=== PATIENT | male | born 1955 | race African-American/Black ===

== ENCOUNTER 2016-09-05 10:21 | Inpatient (IN) | payer OTHER, MEDICARE ==
[~2016-09-05] VITALS: Ht 188 cm; Wt 92.3 kg
[~2016-09-05 10:21] MED LIST: AMLO10TA2 PO; AMLO5TAB4 PO; AMOX875T PO; CODE30TA PO; FLUT16SP NS; IBUP-1007 PO; LOSA1TAB16 PO; LOTRIMIN RIGHT EAR; MULT-252 PO; OMEG10006 PO; OMEG500C3 PO; OMEP40CA5 PO
[2016-09-05 11:33] VITALS: BP 110/74
--- NOTE | 2016-09-05 11:59 | HP ---
ADMIT DATE: 09/05/2016 CHIEF COMPLAINT: Abdominal pain and nausea. HISTORY OF PRESENT ILLNESS: A 61-year-old black male with a history of pancreatitis from alcohol two months ago and history of hypertension who came in with one week of weakness, cough, nausea and poor oral intake. He noticed dark urine on the day prior to admission. There had been no fever, hematemesis, melena, sputum production or other specific complaints. Urinalysis showed a low level of bile in the urine, a moderately high specific gravity, white cells and nitrite and he was admitted for further evaluation. Two months ago, he was in [place] with fairly severe alcoholic pancreatitis. It settled down fairly quickly and he has only been taking lightly since then, but he does admit to drinking some alcohol. MEDICATIONS: Amlodipine and omeprazole were his only meds. ALLERGIES: No allergies are known. 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 FAMILY HISTORY: Unremarkable. REVIEW OF SYSTEMS: Unremarkable. OBJECTIVE: ENT: Sclerae are clear. TMs and pharynx, unremarkable. Mucosa, mildly dry. NECK: Revealed no masses, nodes or JVD. LUNGS: Clear. CARDIOVASCULAR: Regular rate. No irregular beat or murmur or tachycardia. ABDOMEN: Tender in the epigastrium. No guarding, masses or rebound. EXTREMITIES: Good pedal and radial pulses. No joint or skin lesions. ____. GENITOURINARY AND RECTAL: Deferred. ASSESSMENT: Suspect milder flare of pancreatitis, could have a component of alcoholic hepatitis as well. PLAN: Lab work, hydration and supportive care for now. ANIKET RONQUILLO MD DR: KEYUR/christy JOB#: [id number] / [id number]
[2016-09-05] MEDS: IV DEXTROSE 5%-LACT RINGERS 1,000 ML IV SCH (12:18)
[2016-09-05 12:43] LABS: BASO % 0 % (0-3); EOS % 2 % (0-3); HEMOGLOBIN 12.8 g/dL (13.0-17.5); LYMPH # 2.1 x10^3/uL (1.0-4.8); LYMPH % 25 % (24-48); MEAN CORPUSCULAR HEMOGLOBIN 32 pg (25-35); MEAN CORPUSCULAR HGB CONC 33 g/dL (31-37); MEAN CORPUSCULAR VOLUME 96 fL (79-100); MONO % 5 % (0-9); NEUT % 68 % (31-73); PLATELET COUNT 109 x10^3/uL (140-400); RED BLOOD COUNT 4.06 x10^6/uL (4.30-5.70); RED CELL DISTRIBUTION WIDTH 13.4 % (11.5-14.5); WHITE BLOOD COUNT 8.3 x10^3/uL (4.0-11.0)
[2016-09-05 12:48] LABS: ALBUMIN 2.8 g/dL (3.4-5.0); ALBUMIN/GLOBULIN RATIO 0.7 (1.0-1.7); CALCIUM 8.5 mg/dL (8.5-10.1); CREATININE 1.1 mg/dL (0.7-1.3); GFR 82.9; POTASSIUM 4.2 mmol/L (3.5-5.1); TOTAL BILIRUBIN 5.7 mg/dL (0.2-1.0); TOTAL PROTEIN 6.8 g/dL (6.4-8.2)
[2016-09-05 13:42] LABS: BILIRUBIN,URINE LARGE (NEG); GLUCOSE,URINE NEGATIVE (NEG); NITRITE,URINE POSITIVE (NEG); PH,URINE 5.5; PROTEIN,URINE NEGATIVE (NEG-TRACE)
[2016-09-05] MEDS: LORAZEPAM 1 MG TABLET. PO PRN ×2 (13:56→21:34)
[2016-09-05 14:02] LABS: BACTERIA,URINE 0 /HPF (0-FEW); RBC,URINE 0 /HPF (0-2); SQUAMOUS EPITHELIAL CELL,UR OCC /LPF
[2016-09-05 15:00] VITALS: BP 125/77
[2016-09-05] MEDS: PIPERACILLIN/TAZOBACTAM 3.375 GM in IV NORMAL SALINE 50ML 50 ML IV SCH ×2 (15:12→18:14)
--- NOTE | 2016-09-05 16:39 | RAD ---
Chest, 2 views, 09/05/2016: History: Pancreatitis, acid reflux Comparison is made to a study from 02/28/2015. The heart size and pulmonary vascularity are normal. No pulmonary infiltrates are seen. There is no evidence of pleural fluid. Moderate spurring is present in the spine. A surgical plate and screws is evident in the lower cervical spine. IMPRESSION: No acute cardiopulmonary abnormality is detected.
[2016-09-05 19:00] VITALS: BP 117/71
[2016-09-05] MEDS: PANTOPRAZOLE 40 MG TABLET. PO SCH (21:33)
[2016-09-05 23:00] VITALS: BP 113/74
[2016-09-06] MEDS: PIPERACILLIN/TAZOBACTAM 3.375 GM in IV NORMAL SALINE 50ML 50 ML IV SCH ×5 (01:23→23:25)
[2016-09-06 03:00] VITALS: BP 120/73
[2016-09-06] MEDS: IV DEXTROSE 5%-LACT RINGERS 1,000 ML IV SCH ×4 (03:30→17:33)
[2016-09-06] MEDS: PANTOPRAZOLE 40 MG TABLET. PO SCH (05:42)
[2016-09-06 06:23] LABS: ALBUMIN 2.4 g/dL (3.4-5.0); CALCIUM 8.3 mg/dL (8.5-10.1); DIRECT BILIRUBIN 4.2 mg/dL (0.0-0.2); GFR 92.5; POTASSIUM 4.1 mmol/L (3.5-5.1); TOTAL BILIRUBIN 5.4 mg/dL (0.2-1.0); TOTAL PROTEIN 6.2 g/dL (6.4-8.2)
[2016-09-06 07:00] VITALS: BP 118/72
--- NOTE | 2016-09-06 07:30 | RAD ---
Right upper quadrant abdominal ultrasound, 09/05/2016: History: Right upper quadrant pain The gallbladder is within normal limits in size. There is edematous thickening of the gallbladder hernández. This was not evident on the previous study of 06/22/2016. No gallstones are seen. No bile duct dilatation is evident. The liver demonstrates increased echogenicity in a diffuse pattern most compatible with fatty change. It measures 21.6 cm in craniocaudad extent. The pancreas was obscured by overlying bowel. Limited views of the right kidney show no abnormality. IMPRESSION: 1. Hepatomegaly with diffusely increased hepatic echogenicity compatible with fatty change. 2. Moderate edematous gallbladder wall thickening without evidence of gallstones. This mural thickening can be due to a variety of causes including hepatic disease, renal disease, hypoproteinemia or cholecystitis.
--- NOTE | 2016-09-06 08:25 | PDOC ---
Provider Note Provider Note pain less, no new sxs- low grade temp, vss- tb/db 5.8/4, sono shows no cd obstruct/stones but abn GB- will get ct, cont zosyn, consult gi/gs , may need ercp if bili persists ANIKET RONQUILLO MD Sep 06, 2016 08:25
[2016-09-06] MEDS ORDERED: NON FORMULARY ITEM (Omeprazole 1 CAP) PO SCH (09:00)
[2016-09-06] MEDS ORDERED: AMLODIPINE BESYLATE 10 MG TABLET PO SCH (09:00)
[2016-09-06] MEDS ORDERED: IOHEXOL 240 MG/ML 50ML VIAL. PO ONE (09:45)
[2016-09-06] MEDS ORDERED: IOHEXOL 300 MG/ML 75 ML VIAL IV ONE (09:45)
[2016-09-06] MEDS ORDERED: CONTRAST GIVEN MC PRN (09:45)
--- NOTE | 2016-09-06 09:54 | PDOC2 ---
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 He estimates a 28 pound weight loss since pancreatitis in 06/2016. Labs significant for bili 5.7 (now 5.4), AST 330 (now 241), ALT 163 (now 135), Alk Phos 591 (now 528). Lipase is WNL. No h/o elevated LFTs. Abd US showed hepatomegaly c/w fatty change and moderate gallbladder wall thickening w/o gallstones. GI and surgery consults requested. CT A/P and acute hepatitis panel ordered, along w/ C Dif. Has h/o GERD somewhat improved w/ Rx med (I believe PPI); sometimes he has to "double-up." No previous EGD, recalls colonoscopy w/ 2 polyps ~15 years ago. Is on PPI here and IV atbx. Note Tmax 99.8. PMH: PMH: HTN, GERD, DM FH: Family History: Cancer (father - prostate) Social History: Smoke: <1 pack per day (1 cigar during each [employer] game) ALCOHOL: other (2 beers during each [employer] game) ROS: GEN: +chills/sweats HEENT: Denies blurred vision, sore throat CV: Denies chest pain RESP: Denies shortness of air, cough GI: Per HPI : Denies hematuria, dysuria ENDO: +weight loss NEURO: Denies confusion, dizziness MSK: Denies weakness, joint pain/swelling SKIN: Denies jaundice, pruritus VItals: Vitals: Vital Signs Date Time Temp Pulse Resp B/P Pulse Ox O2 Delivery O2 Flow Rate FiO2 09/06/16 03:00 98.8 92 17 120/73 99 Room Air 98.8 Labs: Labs: Laboratory Tests Test 09/05/16 12:30 09/05/16 13:20 09/06/16 04:15 White Blood Count 8.3x10^3/uL (4.0-11.0) Red Blood Count 4.06x10^6/uL (4.30-5.70) Hemoglobin 12.8g/dL (13.0-17.5) Hematocrit 39.0% (39.0-53.0) Mean Corpuscular Volume 96fL (79-100) Mean Corpuscular Hemoglobin 32pg (25-35) Mean Corpuscular Hemoglobin Concent 33g/dL (31-37) Red Cell Distribution Width 13.4% (11.5-14.5) Platelet Count 109x10^3/uL (140-400) Neutrophils (%) (Auto) 68% (31-73) Lymphocytes (%) (Auto) 25% (24-48) Monocytes (%) (Auto) 5% (0-9) Eosinophils (%) (Auto) 2% (0-3) Basophils (%) (Auto) 0% (0-3) Neutrophils # (Auto) 5.6x10^3uL (1.8-7.7) Lymphocytes # (Auto) 2.1x10^3/uL (1.0-4.8) Monocytes # (Auto) 0.4x10^3/uL (0.0-1.1) Eosinophils # (Auto) 0.1x10^3/uL (0.0-0.7) Basophils # (Auto) 0.0x10^3/uL (0.0-0.2) Sodium Level 123mmol/L (136-145) 136mmol/L (136-145) Potassium Level 4.2mmol/L (3.5-5.1) 4.1mmol/L (3.5-5.1) Chloride Level 88mmol/L (98-107) 101mmol/L (98-107) Carbon Dioxide Level 29mmol/L (21-32) 23mmol/L (21-32) Anion Gap 6 (6-14) 12 (6-14) Blood Urea Nitrogen 9mg/dL (8-26) 6mg/dL (8-26) Creatinine 1.1mg/dL (0.7-1.3) 1.0mg/dL (0.7-1.3) Estimated GFR (Cockcroft-Gault) 82.9 92.5 BUN/Creatinine Ratio 8 (6-20) Glucose Level 165mg/dL (70-99) 197mg/dL (70-99) Calcium Level 8.5mg/dL (8.5-10.1) 8.3mg/dL (8.5-10.1) Total Bilirubin 5.7mg/dL (0.2-1.0) 5.4mg/dL (0.2-1.0) Aspartate Amino Transf (AST/SGOT) 330U/L (15-37) 241U/L (15-37) Alanine Aminotransferase (ALT/SGPT) 163U/L (16-63) 135U/L (16-63) Alkaline Phosphatase 591U/L (46-116) 528U/L (46-116) Total Protein 6.8g/dL (6.4-8.2) 6.2g/dL (6.4-8.2) Albumin 2.8g/dL (3.4-5.0) 2.4g/dL (3.4-5.0) Albumin/Globulin Ratio 0.7 (1.0-1.7) Lipase 370U/L (73-393) Urine Color [place] Urine Clarity Cloudy Urine pH 5.5 Urine Specific [place] 1.015 Urine Protein Negativemg/dL (NEG-TRACE) Urine Glucose (UA) Negativemg/dL (NEG) Urine Ketones (Stick) Tracemg/dL (NEG) Urine Blood Negative (NEG) Urine Nitrite Positive (NEG) Urine Bilirubin Large (NEG) Urine Urobilinogen Dipstick 1.0mg/dL (0.2 mg/dL) Urine Leukocyte Esterase Small (NEG) Urine RBC 0/HPF (0-2) Urine WBC 11-20/HPF (0-4) Urine Squamous Epithelial Cells Occ/LPF Urine Bacteria 0/HPF (0-FEW) Urine Hyaline Casts Moderate/HPF Urine Mucus Slight/LPF Direct Bilirubin 4.2mg/dL (0.0-0.2) Allergies: Coded Allergies: celecoxib (Verified Allergy, Intermediate, RASH, takes Ibuprofen at home, 09/01/14) Medications: Current Medications Medications (Trade) Dose Ordered Sig/Mai Route PRN Reason Start Time Stop Time Status Last Admin Dose Admin Pantoprazole Sodium (Protonix) 40 mg DAILYAC PO 09/05/16 18:00 09/06/16 05:42 Lorazepam 1 mg 1 mg PRN Q4HRS PRN PO ANXIETY / AGITATION 09/05/16 12:00 09/05/16 21:34 Dextrose/Lactated Ringer's 1,000 ml @ 150 mls/hr Q6H40M IV 09/05/16 12:00 09/06/16 03:30 Piperacillin Sod/ Tazobactam Sod/ Sodium Chloride (Zosyn/Iv Sodium Chloride 0.9% 50ml) 50 ml @ 100 mls/hr Q6HRS IV 09/05/16 14:30 09/06/16 05:42 Imaging: Imaging: RUQ US 09/06/16 IMPRESSION: 1. Hepatomegaly with diffusely increased hepatic echogenicity compatible with fatty change. 2. Moderate edematous gallbladder wall thickening without evidence of gallstones. This mural thickening can be due to a variety of causes including hepatic disease, renal disease, hypoproteinemia or cholecystitis. CXR 09/05/16 IMPRESSION: No acute cardiopulmonary abnormality is detected. PE: GEN: NAD, pleasant HEENT: Atraumatic, +sclera icteric LUNGS: CTAB HEART: RRR ABD: NABS, S/ND, epigastric tenderness < RUQ tenderness EXTREMITY: No edema SKIN: No rashes NEURO/PSYCH: A & O 3 A/P: A/P: Jaundice -bili 5.4, AST 241, ALT 135, Alk Phos 528 Upper abd pain, anorexia, vomiting, diarrhea, weight loss, fever -on atbx Abnormal US -hepatomegaly w/ gallbladder wall thickening GERD -not completely controlled w/ PPI, no previous EGD H/o alcoholic pancreatitis -lipase normal this admission CRC screen, h/o colon polyps -reports last colonoscopy ~15 years ago -- Await additional labs and CT. Other per Dr. Bray. NAYE SHELDON Sep 06, 2016 09:54
[2016-09-06 11:00] VITALS: BP 123/65
--- NOTE | 2016-09-06 12:11 | RAD ---
EXAM: CT abdomen with/without contrast. HISTORY: Obstructive jaundice. TECHNIQUE: CT of the abdomen was performed before and after the intravenous administration of 75 mL Omnipaque 300. COMPARISON: 08/11/2014. FINDINGS: Images of the lung bases reveal mild dependent atelectasis or scarring. Bone windows reveal no suspicious lesions. There is severe diffuse hepatic steatosis. The liver is moderately to severely enlarged.] Hepatic lobe, there is ill-defined region of masslike enhancement measuring 4.8 x 3.7 cm. There is relative fatty sparing inferiorly in segment IVb. There is diffuse gallbladder wall thickening without pericholecystic inflammation. There is no clear biliary dilatation. The pancreas is unremarkable. The pancreatic duct is not dilated. There is a duodenal diverticulum along the third/fourth portion, incidental finding. The adrenal glands, spleen and kidneys are unremarkable. A small bowel hernia contains only fat. There is no obstruction. There are diffuse atherosclerotic calcifications. There are no pathologically enlarged lymph nodes. IMPRESSION: 1. Severe diffuse hepatic steatosis and hepatomegaly. 2. There is no ill-defined a 4.8 cm region of hyperenhancement in the right hepatic lobe. This may represent a mass or a focus of fatty sparing. MRI with/without contrast could further characterize if feasible. Otherwise, follow-up is recommended. 3. No biliary dilatation or cause for biliary obstruction is identified. Correlate for primary hepatocellular causes of hyperbilirubinemia. 4. Gallbladder wall thickening likely reflects liver disease rather than acute cholecystitis. Correlate clinically. One or more of the following individualized dose reduction techniques were utilized for this examination: 1. Automated exposure control. 2. Adjustment of the mA and/or kV according to patient size. 3. Use of iterative reconstruction technique.
--- NOTE | 2016-09-06 12:53 | PDOC2 ---
HALLEY SUE JACQUARD CARD LACER 09/06/16 1252: CONSULT Date of Consult Date of Consult DATE: 09/06/16 TIME: 12:45 Reason for Consult Reason for Consult: obstructive jaundice Referring Physician Referring Physician: Dr Abel Identification/Chief Complaint Chief Complaint weakness, abdominal pain Source Source: Chart review, Patient History of Present Illness Reason for Visit: History of alcoholic pancreatitis. Admitted with abdominal pain, weakness, vomiting, and dark urine. Labs demonstrated a normal lipase with elevated LFTS and bilirubin. Currently pain improved and tolerating clear liquids Past Medical History Cardiovascular: HTN GI: GERD Endocrine: Diabetes Past Surgical History Past Surgical History: No pertinent history Family History Family History: Cancer (prostate cancer in father ) Social History <1 pack per day (1 cigar during each [employer] game) ALCOHOL: other (2 beers during each [employer] game) Current Medications Current Medications Current Medications Prochlorperazine Edisylate (Compazine) 5 mg PRN Q6HRS PRN IV NAUSEA/VOMITING; Start 09/05/16 at 12:00 Pantoprazole Sodium (Protonix) 40 mg DAILYAC PO Last administered on 09/06/16 05:42; Start 09/05/16 at 18:00 Lorazepam 1 mg 1 mg PRN Q4HRS PRN PO ANXIETY / AGITATION Last administered on 21:34; Start 09/05/16 at 12:00 Dextrose/Lactated Ringer's 1,000 ml @ 150 mls/hr Q6H40M IV Last administered on 09/06/16 11:00; Start 09/05/16 at 12:00 Piperacillin Sod/ Tazobactam Sod/ Sodium Chloride (Zosyn/Iv Sodium Chloride 0.9 % 50ml) 50 ml @ 100 mls/hr Q6HRS IV Last administered on 09/06/16 11:27; Start 09/05/16 at 14:30 Amlodipine Besylate (Norvasc) 10 mg DAILY PO ; Start 09/06/16 at 09:00; Stop at 09:00; Status DC Non-Formulary Medication 1 cap DAILY PO ; Start 09/06/16 at 09:00; Stop at 09:00; Status DC Iohexol (Omnipaque 240 Mg/ml) 30 ml 1X ONCE PO Last administered on 09/06/16 09:45; Start 09/06/16 at 09:45; Stop 09/06/16 at 09:46; Status DC Iohexol (Omnipaque 300 Mg/ml) 75 ml 1X ONCE IV Last administered on 09/06/16 11:10; Start 09/06/16 at 09:45; Stop 09/06/16 at 09:46; Status DC Info (Do NOT chart on this entry -- for MONITORING) 1 each PRN DAILY PRN MC SEE COMMENTS; Start 09/06/16 at 09:45; Stop 09/08/16 at 09:44 Active Scripts Active Reported Fish Oil ([place]-3 Fatty Acids) 500 Mg Capsule 500 Mg PO DAILY One Daily Venuemob Tablet (Multivits-Minerals/Fa/Lycopene) 1 Each Tablet 1 Each PO DAILY Omeprazole 40 Mg Capsule. 1 Cap PO DAILY Amlodipine Besylate 10 Mg Tablet 10 Mg PO DAILY Allergies Allergies: Coded Allergies: celecoxib (Verified Allergy, Intermediate, RASH, takes Ibuprofen at home, 09/01/14) ROS General: YES: Chills, Fatigue PSYCHOLOGICAL ROS: No: Anxiety, Depression Eyes: No Blurry vision, No Double vision HEENT: No: Heacaches, Sore Throat Hematological and Lymphatic: No: Bleeding Problems, Blood Clots Respiratory: No: Cough, Shortness of breath Cardiovascular: No Chest Pain, No Palpitations Gastrointestinal: Yes Diarrhea, Yes Nausea, Yes Vomiting Genitourinary: No Dysuria, No Hematuria Musculoskeletal: No Joint Pain, No Muscle Pain Neurological: No Impaired Coord/balance, No Numbness/Tingling Skin: No Pruritus, No Rash Physical Exam General: Alert, Oriented X3, Cooperative, No acute distress HEENT: PERRLA, Mucous membr. moist/pink Lungs: Clear to auscultation, Normal air movement Heart: Regular rate, Normal S1, Normal S2, No murmurs Abdomen: Soft, No tenderness Extremities: No clubbing, No cyanosis Skin: No rashes, No breakdown Neuro: Normal speech, Sensation intact Psych/Mental Status: Mental status NL, Mood NL MUSCULOSKELETAL: No deformity, No swelling Vitals VITALS Vital Signs Date Time Temp Pulse Resp B/P Pulse Ox O2 Delivery O2 Flow Rate FiO2 09/06/16 07:00 98.8 85 18 118/72 96 Room Air 98.8 Labs Labs Laboratory Tests Test 09/05/16 12:30 09/05/16 13:20 09/06/16 04:15 White Blood Count 8.3x10^3/uL (4.0-11.0) Red Blood Count 4.06x10^6/uL (4.30-5.70) Hemoglobin 12.8g/dL (13.0-17.5) Hematocrit 39.0% (39.0-53.0) Mean Corpuscular Volume 96fL (79-100) Mean Corpuscular Hemoglobin 32pg (25-35) Mean Corpuscular Hemoglobin Concent 33g/dL (31-37) Red Cell Distribution Width 13.4% (11.5-14.5) Platelet Count 109x10^3/uL (140-400) Neutrophils (%) (Auto) 68% (31-73) Lymphocytes (%) (Auto) 25% (24-48) Monocytes (%) (Auto) 5% (0-9) Eosinophils (%) (Auto) 2% (0-3) Basophils (%) (Auto) 0% (0-3) Neutrophils # (Auto) 5.6x10^3uL (1.8-7.7) Lymphocytes # (Auto) 2.1x10^3/uL (1.0-4.8) Monocytes # (Auto) 0.4x10^3/uL (0.0-1.1) Eosinophils # (Auto) 0.1x10^3/uL (0.0-0.7) Basophils # (Auto) 0.0x10^3/uL (0.0-0.2) Sodium Level 123mmol/L (136-145) 136mmol/L (136-145) Potassium Level 4.2mmol/L (3.5-5.1) 4.1mmol/L (3.5-5.1) Chloride Level 88mmol/L (98-107) 101mmol/L (98-107) Carbon Dioxide Level 29mmol/L (21-32) 23mmol/L (21-32) Anion Gap 6 (6-14) 12 (6-14) Blood Urea Nitrogen 9mg/dL (8-26) 6mg/dL (8-26) Creatinine 1.1mg/dL (0.7-1.3) 1.0mg/dL (0.7-1.3) Estimated GFR (Cockcroft-Gault) 82.9 92.5 BUN/Creatinine Ratio 8 (6-20) Glucose Level 165mg/dL (70-99) 197mg/dL (70-99) Calcium Level 8.5mg/dL (8.5-10.1) 8.3mg/dL (8.5-10.1) Total Bilirubin 5.7mg/dL (0.2-1.0) 5.4mg/dL (0.2-1.0) Aspartate Amino Transf (AST/SGOT) 330U/L (15-37) 241U/L (15-37) Alanine Aminotransferase (ALT/SGPT) 163U/L (16-63) 135U/L (16-63) Alkaline Phosphatase 591U/L (46-116) 528U/L (46-116) Total Protein 6.8g/dL (6.4-8.2) 6.2g/dL (6.4-8.2) Albumin 2.8g/dL (3.4-5.0) 2.4g/dL (3.4-5.0) Albumin/Globulin Ratio 0.7 (1.0-1.7) Lipase 370U/L (73-393) Urine Color [place] Urine Clarity Cloudy Urine pH 5.5 Urine Specific [place] 1.015 Urine Protein Negativemg/dL (NEG-TRACE) Urine Glucose (UA) Negativemg/dL (NEG) Urine Ketones (Stick) Tracemg/dL (NEG) Urine Blood Negative (NEG) Urine Nitrite Positive (NEG) Urine Bilirubin Large (NEG) Urine Urobilinogen Dipstick 1.0mg/dL (0.2 mg/dL) Urine Leukocyte Esterase Small (NEG) Urine RBC 0/HPF (0-2) Urine WBC 11-20/HPF (0-4) Urine Squamous Epithelial Cells Occ/LPF Urine Bacteria 0/HPF (0-FEW) Urine Hyaline Casts Moderate/HPF Urine Mucus Slight/LPF Direct Bilirubin 4.2mg/dL (0.0-0.2) Laboratory Tests Test 09/05/16 13:20 09/06/16 04:15 Urine Color [place] Urine Clarity Cloudy Urine pH 5.5 Urine Specific [place] 1.015 Urine Protein Negativemg/dL (NEG-TRACE) Urine Glucose (UA) Negativemg/dL (NEG) Urine Ketones (Stick) Tracemg/dL (NEG) Urine Blood Negative (NEG) Urine Nitrite Positive (NEG) Urine Bilirubin Large (NEG) Urine Urobilinogen Dipstick 1.0mg/dL (0.2 mg/dL) Urine Leukocyte Esterase Small (NEG) Urine RBC 0/HPF (0-2) Urine WBC 11-20/HPF (0-4) Urine Squamous Epithelial Cells Occ/LPF Urine Bacteria 0/HPF (0-FEW) Urine Hyaline Casts Moderate/HPF Urine Mucus Slight/LPF Sodium Level 136mmol/L (136-145) Potassium Level 4.1mmol/L (3.5-5.1) Chloride Level 101mmol/L (98-107) Carbon Dioxide Level 23mmol/L (21-32) Anion Gap 12 (6-14) Blood Urea Nitrogen 6mg/dL (8-26) Creatinine 1.0mg/dL (0.7-1.3) Estimated GFR (Cockcroft-Gault) 92.5 Glucose Level 197mg/dL (70-99) Calcium Level 8.3mg/dL (8.5-10.1) Total Bilirubin 5.4mg/dL (0.2-1.0) Direct Bilirubin 4.2mg/dL (0.0-0.2) Aspartate Amino Transf (AST/SGOT) 241U/L (15-37) Alanine Aminotransferase (ALT/SGPT) 135U/L (16-63) Alkaline Phosphatase 528U/L (46-116) Total Protein 6.2g/dL (6.4-8.2) Albumin 2.4g/dL (3.4-5.0) Assessment/Plan Assessment/Plan obstructive jaundice alcoholic pancreatitis history CT findings of hepatomegaly, no acute gb findings(likely due to chronic liver disease)--will check PIPIDA to further eval GB ERLIN AGUILERA MD 09/06/16 1308: CONSULT Allergies Allergies: Coded Allergies: celecoxib (Verified Allergy, Intermediate, RASH, takes Ibuprofen at home, 09/01/14) Assessment/Plan Assessment/Plan was by earlier to see patient, but he was on the phone and being taken to CT results of CT reviewed will check PIPIDA will follow with you Thanks for consult HALLEY SUE APRN Sep 06, 2016 12:52 ERLIN AGUILERA MD Sep 06, 2016 13:08
[2016-09-06 15:11] VITALS: BP 125/67
[2016-09-06] MEDS: PROCHLORPERAZINE 10 MG/2 ML VIAL. IV PRN (18:24)
[2016-09-06 19:00] VITALS: BP 137/75
[2016-09-06 23:00] VITALS: BP 151/73
[2016-09-06] MEDS: IBUPROFEN 400 MG TABLET. PO PRN (23:25)
[2016-09-06] MEDS: LORAZEPAM 1 MG TABLET. PO PRN (23:25)
[2016-09-07] MEDS: IV DEXTROSE 5%-LACT RINGERS 1,000 ML IV SCH ×3 (01:13→18:11)
[2016-09-07 03:19] VITALS: BP 123/76
[2016-09-07] MEDS: PIPERACILLIN/TAZOBACTAM 3.375 GM in IV NORMAL SALINE 50ML 50 ML IV SCH ×3 (05:24→18:08)
[2016-09-07 07:50] LABS: ALBUMIN 2.2 g/dL (3.4-5.0); DIRECT BILIRUBIN 4.4 mg/dL (0.0-0.2); TOTAL BILIRUBIN 5.4 mg/dL (0.2-1.0); TOTAL PROTEIN 5.6 g/dL (6.4-8.2)
--- NOTE | 2016-09-07 08:34 | PDOC ---
Provider Note Provider Note T max 102, fair output- still icteric , tender RUQ- tb/db same , rest of TAs better- ct shows large and fatty liver w/ cirrhosis, ? R lobe mass- hida scan pending- LFT in 07/01 were not up, still suspect obstruction now- will check re hep c/ afp also but alcohol most likely culprit ANIKET RONQUILLO MD Sep 07, 2016 08:34
[2016-09-07] MEDS ORDERED: MORPHINE SULFATE 4 MG/ML DISP.SYRIN. IV ONE (09:00)
[2016-09-07] MEDS: PANTOPRAZOLE 40 MG TABLET. PO SCH (10:28)
[2016-09-07 11:00] VITALS: BP 117/68
[2016-09-07 11:10] LABS: BASO # 0.1 x10^3/uL (0.0-0.2); BASO % 1 % (0-3); EOS % 2 % (0-3); HEMATOCRIT 36.8 % (39.0-53.0); HEMOGLOBIN 11.8 g/dL (13.0-17.5); LYMPH % 21 % (24-48); MEAN CORPUSCULAR HEMOGLOBIN 31 pg (25-35); MEAN CORPUSCULAR HGB CONC 32 g/dL (31-37); MEAN CORPUSCULAR VOLUME 98 fL (79-100); MONO % 7 % (0-9); NEUT % 69 % (31-73); PLATELET COUNT 120 x10^3/uL (140-400); RED BLOOD COUNT 3.76 x10^6/uL (4.30-5.70); RED CELL DISTRIBUTION WIDTH 13.5 % (11.5-14.5)
--- NOTE | 2016-09-07 11:17 | RAD ---
EXAM: Nuclear hepatobiliary scan with ejection fraction. HISTORY: Abdominal pain, nausea and vomiting FINDINGS: Serial static images are obtained of the liver and biliary system following IV administration of 5.0 mCi of technetium-99m Choletec. The liver appears enlarged. No focal lesions are seen. There is excretion into the biliary tree and small bowel. The gallbladder did not fill through 60 minutes. 4 mg morphine was administered intravenously at 60 minutes. The gallbladder then filled. IMPRESSION: 1. The gallbladder did not fill through 60 minutes but filled after intravenous morphine administration. No evidence of acute cholecystitis. 2. The liver is enlarged.
[2016-09-07 11:19] LABS: CALCIUM 8.1 mg/dL (8.5-10.1); CREATININE 0.8 mg/dL (0.7-1.3); GFR 119.7; POTASSIUM 3.4 mmol/L (3.5-5.1)
[2016-09-07 11:55] LABS: INR 1.5 (0.8-1.1); PROTHROMBIN TIME PATIENT 17.5 SEC (11.7-14.0)
--- NOTE | 2016-09-07 12:35 | PDOC ---
Subjective: Subjective: Feeling okay, less abd pain. Objective: Objective: Per RN - blood in stool last night and today. Vital Signs: Vital Signs Date Time Temp Pulse Resp B/P Pulse Ox O2 Delivery O2 Flow Rate FiO2 09/07/16 11:00 98.1 64 18 117/68 94 Room Air 98.1 Labs: Laboratory Tests Test 09/07/16 06:55 09/07/16 11:20 White Blood Count 14.0x10^3/uL Red Blood Count 3.76x10^6/uL Hemoglobin 11.8g/dL Hematocrit 36.8% Mean Corpuscular Volume 98fL Mean Corpuscular Hemoglobin 31pg Mean Corpuscular Hemoglobin Concent 32g/dL Red Cell Distribution Width 13.5% Platelet Count 120x10^3/uL Neutrophils (%) (Auto) 69% Lymphocytes (%) (Auto) 21% Monocytes (%) (Auto) 7% Eosinophils (%) (Auto) 2% Basophils (%) (Auto) 1% Neutrophils # (Auto) 9.8x10^3uL Lymphocytes # (Auto) 3.0x10^3/uL Monocytes # (Auto) 1.0x10^3/uL Eosinophils # (Auto) 0.3x10^3/uL Basophils # (Auto) 0.1x10^3/uL Sodium Level 139mmol/L Potassium Level 3.4mmol/L Chloride Level 104mmol/L Carbon Dioxide Level 23mmol/L Anion Gap 12 Blood Urea Nitrogen 4mg/dL Creatinine 0.8mg/dL Estimated GFR (Cockcroft-Gault) 119.7 Glucose Level 130mg/dL Calcium Level 8.1mg/dL Total Bilirubin 5.4mg/dL Direct Bilirubin 4.4mg/dL Aspartate Amino Transf (AST/SGOT) 167U/L Alanine Aminotransferase (ALT/SGPT) 102U/L Alkaline Phosphatase 498U/L Total Protein 5.6g/dL Albumin 2.2g/dL Prothrombin Time 17.5SEC Prothromb Time International Ratio 1.5 Imaging: CT A/P 09/06/16 IMPRESSION: 1. Severe diffuse hepatic steatosis and hepatomegaly. 2. There is no ill-defined a 4.8 cm region of hyperenhancement in the right hepatic lobe. This may represent a mass or a focus of fatty sparing. MRI with/ without contrast could further characterize if feasible. Otherwise, follow-up is recommended. 3. No biliary dilatation or cause for biliary obstruction is identified. Correlate for primary hepatocellular causes of hyperbilirubinemia. 4. Gallbladder wall thickening likely reflects liver disease rather than acute cholecystitis. Correlate clinically. HIDA 09/07/16 IMPRESSION: 1. The gallbladder did not fill through 60 minutes but filled after intravenous morphine administration. No evidence of acute cholecystitis. 2. The liver is enlarged. PE: GEN: NAD LUNGS: clear anteriorly HEART: RRR ABD: epigastric tenderness NEURO/PSYCH: A & O 3 OTHER: note loose brown stool mixed w/ red blood A/P: Elevated LFTs, jaundice, upper abd pain -bili stable 5.4; AST, ALT, Alk Phos slightly lower -US: hepatomegaly w/ gallbladder wall thickening CT: severe diffuse hepatic steatosis and hepatomegaly, 4.8 cm region of hyperenhancement in the right hepatic lobe (mass or a focus of fatty sparing), no biliary dilatation or cause for biliary obstruction is identified, gallbladder wall thickening likely reflects liver disease HIDA: gallbladder did not fill through 60 minutes but filled after intravenous morphine administration, no evidence of acute cholecystitis, enlarged liver -h/o alcoholic pancreatitis -h/o GERD on PPI, no previous EGD Hematochezia -red blood mixed w/ loose stool x 2 -C Diff neg, has had diarrhea recently -colonoscopy 10 years ago w/ hyperplastic polyps -Hgb from 12.8 to 11.8 -- Await AFP, check MRI. Other per Dr. Bray. NAYE SHELDON Sep 07, 2016 12:35
[2016-09-07] MEDS ORDERED: GADOBUTROL 10 MMOL/10 ML VIAL IV ONE (13:30)
--- NOTE | 2016-09-07 14:30 | RAD ---
EXAM: MRI abdomen with and without contrast HISTORY: Right hepatic lobe mass TECHNIQUE: MRI of the abdomen was performed before and after the intravenous administration of 9 mL Gadavist. COMPARISON: None. FINDINGS: Liver: Hepatic parenchymal signal loss on opposed phase images indicates severe diffuse hepatic steatosis. The lesion of concern in the right hepatic lobe is T2 hyperintense and demonstrates relative fatty sparing in comparison with severe background steatosis. Vessels are noted to traverse it. It enhances more avidly than the background parenchyma, but this analysis is complicated by severe steatosis. And measures 4.8 x 4.4 cm by this technique. Small similar additional foci are seen just subjacent to the capsule of the right lobe measuring 1 cm or less. The liver is moderately to severely enlarged. There is relative fatty sparing inferiorly in segment IVb. Biliary tree: There is diffuse gallbladder wall thickening. A few gallstones are noted. The common duct is not dilated. There are no suspicious pancreatic parenchymal lesions. The pancreatic duct is not dilated. Other findings: There are tiny cysts bilaterally in the kidneys. The adrenal glands and spleen are unremarkable. A small umbilical hernia contains only fat. IMPRESSION: 1. 4.8 cm region of T2 hyperintensity and hyperenhancement in the right hepatic lobe. This may be a region of vascular shunting and fatty sparing rather than a discrete mass, as normal hepatic vessels traverse the region. Follow-up is suggested in 3 months to confirm stability. Percutaneous biopsy could be considered if there is other evidence for neoplasm. Neck side 2. Small similar lesions are seen in the subcapsular position of hepatic segment 8/7, likely representing vascular shunting. 3. Severe diffuse hepatic steatosis. Moderate to severe hepatomegaly. 4. Cholelithiasis. Gallbladder wall thickening may be from liver disease rather cholecystitis. Correlate with other data.
[2016-09-07 15:00] VITALS: BP 130/64
--- NOTE | 2016-09-07 16:22 | PDOC ---
SURGICAL PROGRESS NOTE Subjective just completed an MRI per patient no new complaints having sweats Vital Signs Vital Signs Date Time Temp Pulse Resp B/P Pulse Ox O2 Delivery O2 Flow Rate FiO2 09/07/16 11:00 98.1 64 18 117/68 94 Room Air 98.1 I&O Intake and Output 09/07/16 07:00 Intake Total 3160 ml Output Total 700 ml Balance 2460 ml Intake Oral 1060 ml IV Total 2100 ml Output Urine Total 700 ml # Voids 5 # Bowel Movements 1 PATIENT HAS A NAJERA: No General: Alert, Oriented X3, No acute distress Skin: Other (diaphoretic) Labs Laboratory Tests Test 09/05/16 17:45 09/06/16 04:15 09/07/16 06:55 09/07/16 11:20 Clostridium difficile Toxin (PCR) Negative (Negative) Sodium Level 136mmol/L (136-145) 139mmol/L (136-145) Potassium Level 4.1mmol/L (3.5-5.1) 3.4mmol/L (3.5-5.1) Chloride Level 101mmol/L (98-107) 104mmol/L (98-107) Carbon Dioxide Level 23mmol/L (21-32) 23mmol/L (21-32) Anion Gap 12 (6-14) 12 (6-14) Blood Urea Nitrogen 6mg/dL (8-26) 4mg/dL (8-26) Creatinine 1.0mg/dL (0.7-1.3) 0.8mg/dL (0.7-1.3) Estimated GFR (Cockcroft-Gault) 92.5 119.7 Glucose Level 197mg/dL (70-99) 130mg/dL (70-99) Calcium Level 8.3mg/dL (8.5-10.1) 8.1mg/dL (8.5-10.1) Total Bilirubin 5.4mg/dL (0.2-1.0) 5.4mg/dL (0.2-1.0) Direct Bilirubin 4.2mg/dL (0.0-0.2) 4.4mg/dL (0.0-0.2) Aspartate Amino Transf (AST/SGOT) 241U/L (15-37) 167U/L (15-37) Alanine Aminotransferase (ALT/SGPT) 135U/L (16-63) 102U/L (16-63) Alkaline Phosphatase 528U/L (46-116) 498U/L (46-116) Total Protein 6.2g/dL (6.4-8.2) 5.6g/dL (6.4-8.2) Albumin 2.4g/dL (3.4-5.0) 2.2g/dL (3.4-5.0) White Blood Count 14.0x10^3/uL (4.0-11.0) Red Blood Count 3.76x10^6/uL (4.30-5.70) Hemoglobin 11.8g/dL (13.0-17.5) Hematocrit 36.8% (39.0-53.0) Mean Corpuscular Volume 98fL (79-100) Mean Corpuscular Hemoglobin 31pg (25-35) Mean Corpuscular Hemoglobin Concent 32g/dL (31-37) Red Cell Distribution Width 13.5% (11.5-14.5) Platelet Count 120x10^3/uL (140-400) Neutrophils (%) (Auto) 69% (31-73) Lymphocytes (%) (Auto) 21% (24-48) Monocytes (%) (Auto) 7% (0-9) Eosinophils (%) (Auto) 2% (0-3) Basophils (%) (Auto) 1% (0-3) Neutrophils # (Auto) 9.8x10^3uL (1.8-7.7) Lymphocytes # (Auto) 3.0x10^3/uL (1.0-4.8) Monocytes # (Auto) 1.0x10^3/uL (0.0-1.1) Eosinophils # (Auto) 0.3x10^3/uL (0.0-0.7) Basophils # (Auto) 0.1x10^3/uL (0.0-0.2) Prothrombin Time 17.5SEC (11.7-14.0) Prothromb Time International Ratio 1.5 (0.8-1.1) Laboratory Tests Test 09/07/16 06:55 09/07/16 11:20 White Blood Count 14.0x10^3/uL (4.0-11.0) Red Blood Count 3.76x10^6/uL (4.30-5.70) Hemoglobin 11.8g/dL (13.0-17.5) Hematocrit 36.8% (39.0-53.0) Mean Corpuscular Volume 98fL (79-100) Mean Corpuscular Hemoglobin 31pg (25-35) Mean Corpuscular Hemoglobin Concent 32g/dL (31-37) Red Cell Distribution Width 13.5% (11.5-14.5) Platelet Count 120x10^3/uL (140-400) Neutrophils (%) (Auto) 69% (31-73) Lymphocytes (%) (Auto) 21% (24-48) Monocytes (%) (Auto) 7% (0-9) Eosinophils (%) (Auto) 2% (0-3) Basophils (%) (Auto) 1% (0-3) Neutrophils # (Auto) 9.8x10^3uL (1.8-7.7) Lymphocytes # (Auto) 3.0x10^3/uL (1.0-4.8) Monocytes # (Auto) 1.0x10^3/uL (0.0-1.1) Eosinophils # (Auto) 0.3x10^3/uL (0.0-0.7) Basophils # (Auto) 0.1x10^3/uL (0.0-0.2) Sodium Level 139mmol/L (136-145) Potassium Level 3.4mmol/L (3.5-5.1) Chloride Level 104mmol/L (98-107) Carbon Dioxide Level 23mmol/L (21-32) Anion Gap 12 (6-14) Blood Urea Nitrogen 4mg/dL (8-26) Creatinine 0.8mg/dL (0.7-1.3) Estimated GFR (Cockcroft-Gault) 119.7 Glucose Level 130mg/dL (70-99) Calcium Level 8.1mg/dL (8.5-10.1) Total Bilirubin 5.4mg/dL (0.2-1.0) Direct Bilirubin 4.4mg/dL (0.0-0.2) Aspartate Amino Transf (AST/SGOT) 167U/L (15-37) Alanine Aminotransferase (ALT/SGPT) 102U/L (16-63) Alkaline Phosphatase 498U/L (46-116) Total Protein 5.6g/dL (6.4-8.2) Albumin 2.2g/dL (3.4-5.0) Prothrombin Time 17.5SEC (11.7-14.0) Prothromb Time International Ratio 1.5 (0.8-1.1) Problem List Problems Medical Problems: (1) Acute pancreatitis Status: Acute Assessment/Plan fever, leukocytosis, diarrhea stools PIPIDA does not show findings suggesting acute cholecystitis feel GB changes are 2/2 liver issues await MRI results no acute surgical recs will follow Problems: ERLIN AGUILERA MD Sep 07, 2016 16:22
[2016-09-07 17:14] LABS: HEP A IGM ABDY Negative (Negative)
[2016-09-07 19:00] VITALS: BP 147/74
[2016-09-07] MEDS: IBUPROFEN 400 MG TABLET. PO PRN (19:29)
[2016-09-07] MEDS: LORAZEPAM 1 MG TABLET. PO PRN (19:29)
[2016-09-07] MEDS: BENZOCAINE/MENTHOL LOZENGE. PO PRN (20:55)
[2016-09-07 23:00] VITALS: BP 148/79
[2016-09-08] VITALS (15 sets, daily range): BP systolic 113–139; BP diastolic 53–77
[2016-09-08] MEDS: BENZOCAINE/MENTHOL LOZENGE. PO PRN ×4 (00:06→19:16)
[2016-09-08] MEDS: PIPERACILLIN/TAZOBACTAM 3.375 GM in IV NORMAL SALINE 50ML 50 ML IV SCH ×5 (00:07→23:49)
[2016-09-08] MEDS: LORAZEPAM 1 MG TABLET. PO PRN ×3 (00:07→19:58)
[2016-09-08] MEDS: IBUPROFEN 400 MG TABLET. PO PRN ×3 (01:35→20:00)
[2016-09-08] MEDS: IV DEXTROSE 5%-LACT RINGERS 1,000 ML IV SCH ×3 (02:39→19:17)
[2016-09-08] MEDS: PANTOPRAZOLE 40 MG TABLET. PO SCH (06:37)
--- NOTE | 2016-09-08 07:57 | PDOC ---
Provider Note Provider Note remains febrile, 101-102- abd pain same- LFT pending, hida scan ok- afp normal, hep b/c neg- agrre w/ dr torres re need for cholecystostomy for drainage/ cultures- pt agrees, repeat inr ANIKET RONQUILLO MD Sep 08, 2016 07:57
[2016-09-08] MEDS ORDERED: PHYTONADIONE (VIT K1) 5 MG TABLET PO ONE (08:30)
[2016-09-08 09:18] LABS: INR 1.6 (0.8-1.1); PROTHROMBIN TIME PATIENT 18.5 SEC (11.7-14.0)
[2016-09-08 10:10] LABS: DIRECT BILIRUBIN 4.2 mg/dL (0.0-0.2); TOTAL BILIRUBIN 5.2 mg/dL (0.2-1.0); TOTAL PROTEIN 5.7 g/dL (6.4-8.2)
--- NOTE | 2016-09-08 11:06 | PDOC ---
Subjective: Subjective: No further bleeding. Some abd pain. Objective: Objective: Per RN - IR consult for cholecystostomy tube Vital Signs: Vital Signs Date Time Temp Pulse Resp B/P Pulse Ox O2 Delivery O2 Flow Rate FiO2 09/08/16 07:50 99.3 86 20 139/77 94 Room Air 99.3 Labs: Laboratory Tests Test 09/07/16 11:20 09/08/16 08:50 Prothrombin Time 17.5SEC 18.5SEC Prothromb Time International Ratio 1.5 1.6 Total Bilirubin 5.2mg/dL Direct Bilirubin 4.2mg/dL Aspartate Amino Transf (AST/SGOT) 116U/L Alanine Aminotransferase (ALT/SGPT) 84U/L Alkaline Phosphatase 450U/L Total Protein 5.7g/dL Albumin 2.0g/dL Imaging: MRI Abd 09/07/16 IMPRESSION: 1. 4.8 cm region of T2 hyperintensity and hyperenhancement in the right hepatic lobe. This may be a region of vascular shunting and fatty sparing rather than a discrete mass, as normal hepatic vessels traverse the region. Follow-up is suggested in 3 months to confirm stability. Percutaneous biopsy could be considered if there is other evidence for neoplasm. Neck side 2. Small similar lesions are seen in the subcapsular position of hepatic segment 8/7, likely representing vascular shunting. 3. Severe diffuse hepatic steatosis. Moderate to severe hepatomegaly. 4. Cholelithiasis. Gallbladder wall thickening may be from liver disease rather cholecystitis. Correlate with other data. PE: GEN: NAD LUNGS: clear anteriorly HEART: RRR ABD: some tenderness NEURO/PSYCH: A & O 3 A/P: Elevated LFTs, abd pain -bili stable 5.2, AFP WNL, INR 1.6, Hep panel neg -US: hepatomegaly w/ gallbladder wall thickening CT: severe diffuse hepatic steatosis and hepatomegaly, 4.8 cm region of hyperenhancement in the right hepatic lobe (mass or a focus of fatty sparing), no biliary dilatation or cause for biliary obstruction is identified, gallbladder wall thickening likely reflects liver disease HIDA: no evidence of acute cholecystitis, enlarged liver MRI: 4.8 cm region in right hepatic lobe of hyperintensity/hyperenhancement possibly region of vascular shunting and fatty sparing rather than mass (follow- up imaging recommended), hepatic steatosis/hepatomegaly, cholelithiasis -h/o alcoholic pancreatitis -h/o GERD on PPI, no previous EGD Leukocytosis, fever -on IV atbx Hematochezia - resolved -C Diff neg -colonoscopy 10 years ago w/ hyperplastic polyps -- IR consulting for cholecystostomy tube. Will review w/ Dr. Bray. NAYE SHELDON Sep 08, 2016 11:06
--- NOTE | 2016-09-08 11:40 | PDOC ---
HALLEY SUE PHOTOGRAPHY ASSISTANT 09/08/16 1140: SURGICAL PROGRESS NOTE Subjective some upper abdominal pain fevers persist no n/v Vital Signs Vital Signs Date Time Temp Pulse Resp B/P Pulse Ox O2 Delivery O2 Flow Rate FiO2 09/08/16 11:15 99.2 81 18 126/70 95 Room Air 99.2 I&O Intake and Output 09/08/16 07:00 Intake Total 240 ml Balance 240 ml Intake Oral 240 ml # Voids 2 # Bowel Movements 1 General: Alert, Oriented X3, Cooperative, No acute distress Abdomen: Soft, No tenderness Labs Laboratory Tests Test 09/07/16 06:55 09/07/16 10:40 09/07/16 11:20 09/08/16 08:50 White Blood Count 14.0x10^3/uL (4.0-11.0) Red Blood Count 3.76x10^6/uL (4.30-5.70) Hemoglobin 11.8g/dL (13.0-17.5) Hematocrit 36.8% (39.0-53.0) Mean Corpuscular Volume 98fL (79-100) Mean Corpuscular Hemoglobin 31pg (25-35) Mean Corpuscular Hemoglobin Concent 32g/dL (31-37) Red Cell Distribution Width 13.5% (11.5-14.5) Platelet Count 120x10^3/uL (140-400) Neutrophils (%) (Auto) 69% (31-73) Lymphocytes (%) (Auto) 21% (24-48) Monocytes (%) (Auto) 7% (0-9) Eosinophils (%) (Auto) 2% (0-3) Basophils (%) (Auto) 1% (0-3) Neutrophils # (Auto) 9.8x10^3uL (1.8-7.7) Lymphocytes # (Auto) 3.0x10^3/uL (1.0-4.8) Monocytes # (Auto) 1.0x10^3/uL (0.0-1.1) Eosinophils # (Auto) 0.3x10^3/uL (0.0-0.7) Basophils # (Auto) 0.1x10^3/uL (0.0-0.2) Sodium Level 139mmol/L (136-145) Potassium Level 3.4mmol/L (3.5-5.1) Chloride Level 104mmol/L (98-107) Carbon Dioxide Level 23mmol/L (21-32) Anion Gap 12 (6-14) Blood Urea Nitrogen 4mg/dL (8-26) Creatinine 0.8mg/dL (0.7-1.3) Estimated GFR (Cockcroft-Gault) 119.7 Glucose Level 130mg/dL (70-99) Calcium Level 8.1mg/dL (8.5-10.1) Total Bilirubin 5.4mg/dL (0.2-1.0) 5.2mg/dL (0.2-1.0) Direct Bilirubin 4.4mg/dL (0.0-0.2) 4.2mg/dL (0.0-0.2) Aspartate Amino Transf (AST/SGOT) 167U/L (15-37) 116U/L (15-37) Alanine Aminotransferase (ALT/SGPT) 102U/L (16-63) 84U/L (16-63) Alkaline Phosphatase 498U/L (46-116) 450U/L (46-116) Total Protein 5.6g/dL (6.4-8.2) 5.7g/dL (6.4-8.2) Albumin 2.2g/dL (3.4-5.0) 2.0g/dL (3.4-5.0) Tumor Marker Alpha Fetoprotein 1.9ng/mL (0.0-8.3) Hepatitis C Antibody <0.1s/co ratio (0.0-0.9) Prothrombin Time 17.5SEC (11.7-14.0) 18.5SEC (11.7-14.0) Prothromb Time International Ratio 1.5 (0.8-1.1) 1.6 (0.8-1.1) Laboratory Tests Test 09/08/16 08:50 Prothrombin Time 18.5SEC (11.7-14.0) Prothromb Time International Ratio 1.6 (0.8-1.1) Total Bilirubin 5.2mg/dL (0.2-1.0) Direct Bilirubin 4.2mg/dL (0.0-0.2) Aspartate Amino Transf (AST/SGOT) 116U/L (15-37) Alanine Aminotransferase (ALT/SGPT) 84U/L (16-63) Alkaline Phosphatase 450U/L (46-116) Total Protein 5.7g/dL (6.4-8.2) Albumin 2.0g/dL (3.4-5.0) Problem List Problems Medical Problems: (1) Acute pancreatitis Status: Acute Assessment/Plan fevers plans for perc julio drain today Problems: ERLIN AGUILERA MD 09/08/16 1609: SURGICAL PROGRESS NOTE Assessment/Plan saw patient earlier today has undergone drain placement follow vs, labs Problems: HALLEY SUE APRN Sep 08, 2016 11:40 ERLIN AGUILERA MD Sep 08, 2016 16:09
[2016-09-08] MEDS ORDERED: LIDOCAINE 1% / SOD BICARB 8.4% 20 ML VIAL. IJ ONE ×2 (13:23→14:45)
[2016-09-08] MEDS ORDERED: MIDAZOLAM HCL/PF 5 MG/5 ML VIAL ONE (13:32)
[2016-09-08] MEDS ORDERED: FENTANYL PF 250 MCG/5 ML VIAL. ONE (13:32)
[2016-09-08] MEDS ORDERED: ONDANSETRON PF 4 MG/2 ML VIAL. ONE (13:33)
[2016-09-08] MEDS ORDERED: FENTANYL PF 100 MCG/2 ML VIAL. ONE (14:34)
[2016-09-08] MEDS ORDERED: MIDAZOLAM HCL 2 MG/2 ML VIAL. ONE (14:34)
[2016-09-08] MEDS ORDERED: MIDAZOLAM HCL/PF 5 MG/5 ML VIAL IV ONE (14:45)
[2016-09-08] MEDS ORDERED: MIDAZOLAM HCL 2 MG/2 ML VIAL. IV ONE (14:45)
[2016-09-08] MEDS ORDERED: ONDANSETRON PF 4 MG/2 ML VIAL. IV ONE (14:45)
[2016-09-08] MEDS ORDERED: FENTANYL PF 250 MCG/5 ML VIAL. IV ONE (14:45)
[2016-09-08] MEDS ORDERED: FENTANYL PF 100 MCG/2 ML VIAL. IV ONE (14:45)
--- NOTE | 2016-09-08 15:11 | PDOC ---
MODERATE SEDATION ASSESSMENT RISKS/ALTERNATIVES Risks/Alternatives Risks and alternatives of this type of sedation and procedure discussed with: RISK/ALTERNATIVES: Patient H & P ON CHART H & P H & P on chart and reviewed for co-morbid conditions and appropriate labs. H&P ON CHART: Yes STATUS PREG STATUS ASSESSED: N/A MEDS/ALLERGIES REVIEWED Meds/Allergies Reviewed Medications and Allergies including time and route of recently administered narcotics and sedatives. MEDS/ALLERGIES REVIEWED: Yes ASA RATING ASA RATING: II AIRWAY ASSESSMENT Airway Assessment Airway patency, oral function limitations, presence of caps, crowns, dentures, partials, and ability to extend neck assessed. AIRWAY ASSESSMENT: Yes MALLAMPATI SCORE MALLAMPATI SCORE: III PRE-SEDATION ASSESSMENT PRE-SEDATION ASSESSMENT: Yes CECILE SNOW MD Sep 08, 2016 15:11
--- NOTE | 2016-09-08 15:16 | PDOC ---
Exam Account Service Associate Account Service Associate Michele Infrastructure Consultant Infrastructure Consultant F N[place] Pre-Procedure Diagnosis Pre-Procedure Diagnosis 61 YO male with fever, abdominal pain, and abnormal GB by imaging---? cholecystitis. Image guided GB drain insertion requested by general surgery. Post-Procedure Diagnosis Post-Procedure Diagnosis Same. Procedure Performed Procedure Performed CT guided trans-hepatic cholecystostomy drain placement Type of Anesthesia Type of Anesthesia Local + mod sedation Estimated Blood Loss EBL: Minimal Specimens Specimans 65 CC dark, thick bile aspirated from GB---sample to micro for C&S Drain/Tubes Drains/Tubes 10F locking pigtail GB drain---to gravity drainage Condition of Patient Condition of Patient Stable. No apparent complication Disposition Disposition From IR/CT return to [facility]. F/u with general surgery. Full report to follow. CECILE SNOW MD Sep 08, 2016 15:16
[2016-09-08] MEDS ORDERED: HEPARIN 25,000UTS/500ML PREMIX 500 ML IV PRN (17:15)
[2016-09-09] MEDS: BENZOCAINE/MENTHOL LOZENGE. PO PRN ×4 (01:28→23:34)
[2016-09-09] MEDS: IBUPROFEN 400 MG TABLET. PO PRN ×4 (01:30→23:35)
[2016-09-09] MEDS: IV DEXTROSE 5%-LACT RINGERS 1,000 ML IV SCH ×3 (02:40→12:15)
[2016-09-09 03:39] VITALS: BP 117/61
[2016-09-09] MEDS: LORAZEPAM 1 MG TABLET. PO PRN (03:49)
[2016-09-09] MEDS: PIPERACILLIN/TAZOBACTAM 3.375 GM in IV NORMAL SALINE 50ML 50 ML IV SCH ×4 (05:42→23:31)
[2016-09-09 06:55] LABS: BASO % 0 % (0-3); EOS % 4 % (0-3); HEMATOCRIT 34.3 % (39.0-53.0); HEMOGLOBIN 10.8 g/dL (13.0-17.5); LYMPH # 2.3 x10^3/uL (1.0-4.8); LYMPH % 17 % (24-48); MEAN CORPUSCULAR HEMOGLOBIN 31 pg (25-35); MEAN CORPUSCULAR HGB CONC 32 g/dL (31-37); MEAN CORPUSCULAR VOLUME 98 fL (79-100); MONO % 8 % (0-9); NEUT % 71 % (31-73); PLATELET COUNT 132 x10^3/uL (140-400); RED CELL DISTRIBUTION WIDTH 13.2 % (11.5-14.5); WHITE BLOOD COUNT 13.5 x10^3/uL (4.0-11.0)
[2016-09-09 07:28] LABS: ALBUMIN 1.8 g/dL (3.4-5.0); DIRECT BILIRUBIN 4.2 mg/dL (0.0-0.2); TOTAL BILIRUBIN 5.3 mg/dL (0.2-1.0); TOTAL PROTEIN 5.6 g/dL (6.4-8.2)
--- NOTE | 2016-09-09 07:36 | RAD ---
CT-guided cholecystostomy drain insertion Indication: 61-year-old male with abdominal pain, with fever, and with abnormal gallbladder by imaging. Image guided gallbladder drain insertion has been requested by general surgery. Anesthesia: 75 minutes moderate sedation was provided utilizing a total of 6 mg Versed and 300 mcg fentanyl, IV. The patient was appropriately monitored by a qualified independent observer throughout the time of moderate sedation. Consent: The procedure was explained in its entirety to the patient and/or the patient's designated bank representative by a member of the treatment team. This included a discussion of risks and benefits and acceptable alternatives to the procedure, as well as expected consequences of no treatment at all. Discussion of risks included, but was not limited to, those that are most frequent and those that are rare, but possibly severe or life-threatening, as well as the possibility of unforeseen complications. Procedure: Informed consent was obtained from the patient. He was placed supine on the CT scanner. Preliminary noncontrast CT images through abdomen revealed central displacement of gallbladder by a large, fatty liver. Upper abdomen was prepped and draped in the usual sterile fashion. Moderate sedation was provided with IV Versed and fentanyl. Using aseptic technique, local anesthesia, and CT guidance, several unsuccessful attempts were made to percutaneously access gallbladder, utilizing my standard subhepatic approach. However, subhepatic approach to gallbladder was blocked by the presence of gas and fluid containing large and small gut. Referring general surgeon was contacted. The decision was made to proceed with transhepatic gallbladder access. Using aseptic technique, local anesthesia, and CT guidance, a 21-gauge micropuncture needle was directed across right lobe of liver into the gallbladder. A sample of very dark, thick bile was aspirated, and was submitted to microbiology for culture and sensitivity. The micropuncture needle was exchanged for a micropuncture sheath over a 0.018 inch guidewire. The micropuncture sheath was then removed over a 0.035 inch guidewire. The percutaneous tract was then dilated and a 10 [place]olese locking pigtail gallbladder drainage catheter was easily introduced. 65 cc of very dark and very thick bile was then aspirated. Completion CT images documented satisfactory position of the gallbladder drain, without evidence of subcapsular or intraparenchymal liver hemorrhage. The drainage catheter was then connected to gravity drainage, and was secured at the skin exit site utilizing suture and sterile dressing. Patient tolerated the procedure well without apparent complication. Impression: Successful, uneventful CT-guided trans-hepatic insertion of a 10 Togolese locking pigtail cholecystostomy drain, as described. PQRS Compliance Statement: One or more of the following individualized dose reduction techniques was utilized for this procedure: 1. Automated exposure control. 2. Adjustment of MA and/or KV according to patient size. 3. Iterative reconstruction technique.
[2016-09-09 07:45] VITALS: BP 121/80
[2016-09-09] MEDS: PANTOPRAZOLE 40 MG TABLET. PO SCH (08:48)
--- NOTE | 2016-09-09 08:51 | PDOC ---
HALLEY SUE HOSPICE SOCIAL WORKER 09/09/16 0851: SURGICAL PROGRESS NOTE Subjective pain at drain site taking clears some weakness did not sleep well Vital Signs Vital Signs Date Time Temp Pulse Resp B/P Pulse Ox O2 Delivery O2 Flow Rate FiO2 09/09/16 07:45 98.6 84 20 121/80 92 Nasal Cannula 2.0 98.6 I&O Intake and Output 09/09/16 07:00 Intake Total 2340 ml Output Total 70 ml Balance 2270 ml Intake Oral 240 ml IV Total 2100 ml Drainage Total 70 ml # Voids 3 # Bowel Movements 2 General: Alert, Oriented X3, Cooperative, No acute distress Abdomen: Soft, Other (drain bilious ) Labs Laboratory Tests Test 09/07/16 10:40 09/07/16 11:20 09/08/16 08:50 09/09/16 06:10 Tumor Marker Alpha Fetoprotein 1.9ng/mL (0.0-8.3) Hepatitis C Antibody <0.1s/co ratio (0.0-0.9) Prothrombin Time 17.5SEC (11.7-14.0) 18.5SEC (11.7-14.0) Prothromb Time International Ratio 1.5 (0.8-1.1) 1.6 (0.8-1.1) Total Bilirubin 5.2mg/dL (0.2-1.0) 5.3mg/dL (0.2-1.0) Direct Bilirubin 4.2mg/dL (0.0-0.2) 4.2mg/dL (0.0-0.2) Aspartate Amino Transf (AST/SGOT) 116U/L (15-37) 97U/L (15-37) Alanine Aminotransferase (ALT/SGPT) 84U/L (16-63) 67U/L (16-63) Alkaline Phosphatase 450U/L (46-116) 408U/L (46-116) Total Protein 5.7g/dL (6.4-8.2) 5.6g/dL (6.4-8.2) Albumin 2.0g/dL (3.4-5.0) 1.8g/dL (3.4-5.0) White Blood Count 13.5x10^3/uL (4.0-11.0) Red Blood Count 3.50x10^6/uL (4.30-5.70) Hemoglobin 10.8g/dL (13.0-17.5) Hematocrit 34.3% (39.0-53.0) Mean Corpuscular Volume 98fL (79-100) Mean Corpuscular Hemoglobin 31pg (25-35) Mean Corpuscular Hemoglobin Concent 32g/dL (31-37) Red Cell Distribution Width 13.2% (11.5-14.5) Platelet Count 132x10^3/uL (140-400) Neutrophils (%) (Auto) 71% (31-73) Lymphocytes (%) (Auto) 17% (24-48) Monocytes (%) (Auto) 8% (0-9) Eosinophils (%) (Auto) 4% (0-3) Basophils (%) (Auto) 0% (0-3) Neutrophils # (Auto) 9.6x10^3uL (1.8-7.7) Lymphocytes # (Auto) 2.3x10^3/uL (1.0-4.8) Monocytes # (Auto) 1.1x10^3/uL (0.0-1.1) Eosinophils # (Auto) 0.5x10^3/uL (0.0-0.7) Basophils # (Auto) 0.0x10^3/uL (0.0-0.2) Laboratory Tests Test 09/08/16 08:50 09/09/16 06:10 Prothrombin Time 18.5SEC (11.7-14.0) Prothromb Time International Ratio 1.6 (0.8-1.1) Total Bilirubin 5.2mg/dL (0.2-1.0) 5.3mg/dL (0.2-1.0) Direct Bilirubin 4.2mg/dL (0.0-0.2) 4.2mg/dL (0.0-0.2) Aspartate Amino Transf (AST/SGOT) 116U/L (15-37) 97U/L (15-37) Alanine Aminotransferase (ALT/SGPT) 84U/L (16-63) 67U/L (16-63) Alkaline Phosphatase 450U/L (46-116) 408U/L (46-116) Total Protein 5.7g/dL (6.4-8.2) 5.6g/dL (6.4-8.2) Albumin 2.0g/dL (3.4-5.0) 1.8g/dL (3.4-5.0) White Blood Count 13.5x10^3/uL (4.0-11.0) Red Blood Count 3.50x10^6/uL (4.30-5.70) Hemoglobin 10.8g/dL (13.0-17.5) Hematocrit 34.3% (39.0-53.0) Mean Corpuscular Volume 98fL (79-100) Mean Corpuscular Hemoglobin 31pg (25-35) Mean Corpuscular Hemoglobin Concent 32g/dL (31-37) Red Cell Distribution Width 13.2% (11.5-14.5) Platelet Count 132x10^3/uL (140-400) Neutrophils (%) (Auto) 71% (31-73) Lymphocytes (%) (Auto) 17% (24-48) Monocytes (%) (Auto) 8% (0-9) Eosinophils (%) (Auto) 4% (0-3) Basophils (%) (Auto) 0% (0-3) Neutrophils # (Auto) 9.6x10^3uL (1.8-7.7) Lymphocytes # (Auto) 2.3x10^3/uL (1.0-4.8) Monocytes # (Auto) 1.1x10^3/uL (0.0-1.1) Eosinophils # (Auto) 0.5x10^3/uL (0.0-0.7) Basophils # (Auto) 0.0x10^3/uL (0.0-0.2) Problem List Problems Medical Problems: (1) Acute pancreatitis Status: Acute Assessment/Plan fevers improved LFTs same try full liquids, cholecystostomy 6 weeks Problems: ERLIN AGUILERA MD 09/09/16 1323: SURGICAL PROGRESS NOTE Assessment/Plan pt seen, interviewed and examined tube with bilious drainage He is asking if the reason he is having problems is because [employer] has not been coming by to drain his waste (?) encephalopathy? no new surgical recs Problems: HALLEY SUE APRN Sep 09, 2016 08:51 ERLIN AGUILERA MD Sep 09, 2016 13:23
--- NOTE | 2016-09-09 09:05 | PDOC ---
Provider Note Provider Note temp down, TAs slowly lower- bile cult pending- cont zosyn, reduce iv, adv to fl ANIKET RONQUILLO MD Sep 09, 2016 09:05
[2016-09-09 11:05] VITALS: BP 126/68
--- NOTE | 2016-09-09 13:17 | PDOC ---
Subjective: Subjective: Doesn't like food. Some pain around drain. Objective: Vital Signs: Vital Signs Date Time Temp Pulse Resp B/P Pulse Ox O2 Delivery O2 Flow Rate FiO2 09/09/16 11:05 98.3 87 20 126/68 91 Nasal Cannula 2.0 98.3 Labs: Laboratory Tests Test 09/09/16 06:10 White Blood Count 13.5x10^3/uL Red Blood Count 3.50x10^6/uL Hemoglobin 10.8g/dL Hematocrit 34.3% Mean Corpuscular Volume 98fL Mean Corpuscular Hemoglobin 31pg Mean Corpuscular Hemoglobin Concent 32g/dL Red Cell Distribution Width 13.2% Platelet Count 132x10^3/uL Neutrophils (%) (Auto) 71% Lymphocytes (%) (Auto) 17% Monocytes (%) (Auto) 8% Eosinophils (%) (Auto) 4% Basophils (%) (Auto) 0% Neutrophils # (Auto) 9.6x10^3uL Lymphocytes # (Auto) 2.3x10^3/uL Monocytes # (Auto) 1.1x10^3/uL Eosinophils # (Auto) 0.5x10^3/uL Basophils # (Auto) 0.0x10^3/uL Total Bilirubin 5.3mg/dL Direct Bilirubin 4.2mg/dL Aspartate Amino Transf (AST/SGOT) 97U/L Alanine Aminotransferase (ALT/SGPT) 67U/L Alkaline Phosphatase 408U/L Total Protein 5.6g/dL Albumin 1.8g/dL PE: GEN: NAD LUNGS: nasal cannula HEART: RRR ABD: cholecystostomy w/ bilious drainage, tender around drain site NEURO/PSYCH: A & O 3 A/P: Elevated LFTs -bili 5.3, AFP WNL, INR 1.6, Hep panel neg -US: hepatomegaly w/ gallbladder wall thickening CT: severe diffuse hepatic steatosis and hepatomegaly, 4.8 cm region of hyperenhancement in the right hepatic lobe (mass or a focus of fatty sparing), no biliary dilatation or cause for biliary obstruction is identified, gallbladder wall thickening likely reflects liver disease HIDA: no evidence of acute cholecystitis, enlarged liver MRI: 4.8 cm region in right hepatic lobe of hyperintensity/hyperenhancement possibly region of vascular shunting and fatty sparing rather than mass (follow- up imaging recommended), hepatic steatosis/hepatomegaly, cholelithiasis -h/o alcoholic pancreatitis -s/p cholecystostomy 09/08 Leukocytosis, fever -on IV atbx -- Will review w/ Dr. Bray. ?cirrhosis, alcoholic hepatitis SHANNAN-NAYE WU Sep 09, 2016 13:16
[2016-09-09 14:43] VITALS: BP 134/76
[2016-09-09 19:00] VITALS: BP 130/70
[2016-09-09 23:00] VITALS: BP 139/72
[2016-09-10 03:00] VITALS: BP 115/64
[2016-09-10] MEDS: PIPERACILLIN/TAZOBACTAM 3.375 GM in IV NORMAL SALINE 50ML 50 ML IV SCH ×4 (06:12→23:24)
[2016-09-10] MEDS: IBUPROFEN 400 MG TABLET. PO PRN ×4 (06:17→21:42)
[2016-09-10] MEDS: BENZOCAINE/MENTHOL LOZENGE. PO PRN ×2 (06:17→11:15)
[2016-09-10 07:00] VITALS: BP 125/65
[2016-09-10] MEDS: PANTOPRAZOLE 40 MG TABLET. PO SCH (07:43)
[2016-09-10] MEDS: IV DEXTROSE 5%-LACT RINGERS 1,000 ML IV SCH (07:44)
--- NOTE | 2016-09-10 08:52 | PDOC ---
HALLEY SUE COMPOUNDING PHARMACY TECHNICIAN 09/10/16 0852: SURGICAL PROGRESS NOTE Subjective tolerating fulls pain at drain site Vital Signs Vital Signs Date Time Temp Pulse Resp B/P Pulse Ox O2 Delivery O2 Flow Rate FiO2 09/10/16 07:00 97.0 83 22 125/65 97 Room Air 97.0 09/09/16 19:35 2.0 I&O Intake and Output 09/10/16 07:00 Intake Total 1714 ml Output Total 90 ml Balance 1624 ml Intake Oral 1150 ml IV Total 564 ml Drainage Total 90 ml # Voids 2 General: Alert, Oriented X3, Cooperative, No acute distress Abdomen: Soft, Other (tenderness at drain site) Labs Laboratory Tests Test 09/09/16 06:10 White Blood Count 13.5x10^3/uL (4.0-11.0) Red Blood Count 3.50x10^6/uL (4.30-5.70) Hemoglobin 10.8g/dL (13.0-17.5) Hematocrit 34.3% (39.0-53.0) Mean Corpuscular Volume 98fL (79-100) Mean Corpuscular Hemoglobin 31pg (25-35) Mean Corpuscular Hemoglobin Concent 32g/dL (31-37) Red Cell Distribution Width 13.2% (11.5-14.5) Platelet Count 132x10^3/uL (140-400) Neutrophils (%) (Auto) 71% (31-73) Lymphocytes (%) (Auto) 17% (24-48) Monocytes (%) (Auto) 8% (0-9) Eosinophils (%) (Auto) 4% (0-3) Basophils (%) (Auto) 0% (0-3) Neutrophils # (Auto) 9.6x10^3uL (1.8-7.7) Lymphocytes # (Auto) 2.3x10^3/uL (1.0-4.8) Monocytes # (Auto) 1.1x10^3/uL (0.0-1.1) Eosinophils # (Auto) 0.5x10^3/uL (0.0-0.7) Basophils # (Auto) 0.0x10^3/uL (0.0-0.2) Total Bilirubin 5.3mg/dL (0.2-1.0) Direct Bilirubin 4.2mg/dL (0.0-0.2) Aspartate Amino Transf (AST/SGOT) 97U/L (15-37) Alanine Aminotransferase (ALT/SGPT) 67U/L (16-63) Alkaline Phosphatase 408U/L (46-116) Total Protein 5.6g/dL (6.4-8.2) Albumin 1.8g/dL (3.4-5.0) Problem List Problems Medical Problems: (1) Acute pancreatitis Status: Acute Assessment/Plan julio tube, keep in place for 6 weeks cirrhosis Problems: MELINA KELLY MD 09/10/16 0947: SURGICAL PROGRESS NOTE Assessment/Plan Pt seen and examined. Agree with Ms. Sue's note Pt with c/o some pain at drain site cont c tube Problems: HALLEY SUE APRN Sep 10, 2016 08:52 MELINA KELLY MD Sep 10, 2016 09:47
[2016-09-10 11:00] VITALS: BP 138/72
--- NOTE | 2016-09-10 11:30 | PDOC ---
SUBJECTIVE Subjective tolerating liquids, still significant pain, no N/V OBJECTIVE Vital Signs Vital Signs Date Time Temp Pulse Resp B/P Pulse Ox O2 Delivery O2 Flow Rate FiO2 09/10/16 11:00 97.3 80 24 138/72 96 Room Air 97.3 09/10/16 08:00 Nasal Cannula 2.0 09/10/16 07:00 97.0 83 22 125/65 97 Room Air 97.0 09/10/16 03:00 98.8 84 20 115/64 90 Room Air 98.8 09/09/16 23:00 98.8 87 20 139/72 91 Room Air 98.8 09/09/16 19:35 Nasal Cannula 2.0 09/09/16 19:00 99.7 96 20 130/70 90 Room Air 99.7 09/09/16 14:43 99.1 90 20 134/76 90 Room Air 99.1 I & O Intake and Output 09/10/16 07:00 Intake Total 1714 ml Output Total 90 ml Balance 1624 ml Intake Oral 1150 ml IV Total 564 ml Drainage Total 90 ml # Voids 2 PHYSICAL EXAM Physical Exam mild diffuse abd tenderness, +BS. bile drain in place, wound clean lungs clear heart RRR ext no edema ASSESSMENT/PLAN Assessment/Plan 1- s/p cholecystectomy, bile drain in place 2-pancreatitis 3-liver cirrhosis , discussed no ETOH plan to advance diet, control pain , monitor LFT's , start PT Problems: ANGELES CORMIER MD Sep 10, 2016 11:30
[2016-09-10 15:00] VITALS: BP 169/86
--- NOTE | 2016-09-10 16:33 | PDOC ---
GI PROGRESS NOTES Date Date/Time DATE: 09/10/16 TIME: 16:30 Subjective Subjective presumed obstructive jaundice - s/p cholecystostomy tube drainage underlying cirrhosis history of recent alcohol related pancreatitis Objective Vitals Vital Signs Date Time Temp Pulse Resp B/P Pulse Ox O2 Delivery O2 Flow Rate FiO2 09/10/16 15:00 97.9 110 18 169/86 90 Nasal Cannula 2.0 97.9 09/10/16 11:00 97.3 80 24 138/72 96 Room Air 97.3 09/10/16 08:00 Nasal Cannula 2.0 09/10/16 07:00 97.0 83 22 125/65 97 Room Air 97.0 09/10/16 03:00 98.8 84 20 115/64 90 Room Air 98.8 09/09/16 23:00 98.8 87 20 139/72 91 Room Air 98.8 09/09/16 19:35 Nasal Cannula 2.0 09/09/16 19:00 99.7 96 20 130/70 90 Room Air 99.7 Physical Exam Physical Exam chest- clear abd- soft nontender- some bile leakage at tube site- he accidently pulled on the tube Assessment Assessment Cirrhosis jaundice- s/p cholecystostomy tube some bile leakage around tube after sanjuana on tube Problems: Plan Plan redress tube site- if furhter leakage, call IR continue monitoring MARCO BRENNAN MD Sep 10, 2016 16:33
[2016-09-10 19:00] VITALS: BP 113/65
[2016-09-10 23:00] VITALS: BP 118/80
[2016-09-11] MEDS: IBUPROFEN 400 MG TABLET. PO PRN ×6 (01:55→21:41)
[2016-09-11] MEDS: BENZOCAINE/MENTHOL LOZENGE. PO PRN ×2 (01:57→08:15)
[2016-09-11] MEDS: IV DEXTROSE 5%-LACT RINGERS 1,000 ML IV SCH (04:49)
[2016-09-11 05:20] LABS: HEMATOCRIT 30.6 % (39.0-53.0); HEMOGLOBIN 9.9 g/dL (13.0-17.5); RED BLOOD COUNT 3.17 x10^6/uL (4.30-5.70); RED CELL DISTRIBUTION WIDTH 13.3 % (11.5-14.5); WHITE BLOOD COUNT 12.5 x10^3/uL (4.0-11.0)
[2016-09-11 05:38] LABS: ALBUMIN 1.6 g/dL (3.4-5.0); ALBUMIN/GLOBULIN RATIO 0.4 (1.0-1.7); CALCIUM 8.1 mg/dL (8.5-10.1); CREATININE 0.7 mg/dL (0.7-1.3); GFR 139.7; TOTAL BILIRUBIN 4.4 mg/dL (0.2-1.0); TOTAL PROTEIN 5.4 g/dL (6.4-8.2)
[2016-09-11 05:43] LABS: POTASSIUM 2.8 mmol/L (3.5-5.1)
[2016-09-11] MEDS: PANTOPRAZOLE 40 MG TABLET. PO SCH (05:55)
[2016-09-11] MEDS: PIPERACILLIN/TAZOBACTAM 3.375 GM in IV NORMAL SALINE 50ML 50 ML IV SCH ×3 (05:55→17:55)
[2016-09-11] MEDS ORDERED: POTASSIUM CHLORIDE 20 MEQ TABLET.ER. PO ONE ×2 (06:15→11:00)
[2016-09-11 07:00] VITALS: BP 147/75
[2016-09-11] MEDS ORDERED: POTASSIUM CHLORIDE 10 MEQ TABLET.ER. PO SCH (08:00)
--- NOTE | 2016-09-11 09:20 | PDOC ---
HALLEY SUE EMS EDUCATOR 09/11/16 0920: SURGICAL PROGRESS NOTE Subjective he is worried about his swelling/pain to joints today Vital Signs Vital Signs Date Time Temp Pulse Resp B/P Pulse Ox O2 Delivery O2 Flow Rate FiO2 09/11/16 07:00 98.8 85 20 147/75 98 Room Air 98.8 09/10/16 23:00 2.0 I&O Intake and Output 09/11/16 07:00 Intake Total 1040 ml Output Total 125 ml Balance 915 ml Intake Oral 1040 ml Drainage Total 125 ml # Voids 7 # Bowel Movements 1 General: Alert, Oriented X3, Cooperative, No acute distress Abdomen: Soft, Other (c tube in place) Labs Laboratory Tests Test 09/11/16 04:22 White Blood Count 12.5x10^3/uL (4.0-11.0) Red Blood Count 3.17x10^6/uL (4.30-5.70) Hemoglobin 9.9g/dL (13.0-17.5) Hematocrit 30.6% (39.0-53.0) Mean Corpuscular Volume 97fL (79-100) Mean Corpuscular Hemoglobin 31pg (25-35) Mean Corpuscular Hemoglobin Concent 32g/dL (31-37) Red Cell Distribution Width 13.3% (11.5-14.5) Platelet Count 147x10^3/uL (140-400) Sodium Level 140mmol/L (136-145) Potassium Level 2.8mmol/L (3.5-5.1) Chloride Level 105mmol/L (98-107) Carbon Dioxide Level 27mmol/L (21-32) Anion Gap 8 (6-14) Blood Urea Nitrogen 6mg/dL (8-26) Creatinine 0.7mg/dL (0.7-1.3) Estimated GFR (Cockcroft-Gault) 139.7 BUN/Creatinine Ratio 9 (6-20) Glucose Level 105mg/dL (70-99) Calcium Level 8.1mg/dL (8.5-10.1) Total Bilirubin 4.4mg/dL (0.2-1.0) Aspartate Amino Transf (AST/SGOT) 72U/L (15-37) Alanine Aminotransferase (ALT/SGPT) 41U/L (16-63) Alkaline Phosphatase 288U/L (46-116) Total Protein 5.4g/dL (6.4-8.2) Albumin 1.6g/dL (3.4-5.0) Albumin/Globulin Ratio 0.4 (1.0-1.7) Amylase Level 33U/L (25-115) Lipase 203U/L (73-393) Laboratory Tests Test 09/11/16 04:22 White Blood Count 12.5x10^3/uL (4.0-11.0) Red Blood Count 3.17x10^6/uL (4.30-5.70) Hemoglobin 9.9g/dL (13.0-17.5) Hematocrit 30.6% (39.0-53.0) Mean Corpuscular Volume 97fL (79-100) Mean Corpuscular Hemoglobin 31pg (25-35) Mean Corpuscular Hemoglobin Concent 32g/dL (31-37) Red Cell Distribution Width 13.3% (11.5-14.5) Platelet Count 147x10^3/uL (140-400) Sodium Level 140mmol/L (136-145) Potassium Level 2.8mmol/L (3.5-5.1) Chloride Level 105mmol/L (98-107) Carbon Dioxide Level 27mmol/L (21-32) Anion Gap 8 (6-14) Blood Urea Nitrogen 6mg/dL (8-26) Creatinine 0.7mg/dL (0.7-1.3) Estimated GFR (Cockcroft-Gault) 139.7 BUN/Creatinine Ratio 9 (6-20) Glucose Level 105mg/dL (70-99) Calcium Level 8.1mg/dL (8.5-10.1) Total Bilirubin 4.4mg/dL (0.2-1.0) Aspartate Amino Transf (AST/SGOT) 72U/L (15-37) Alanine Aminotransferase (ALT/SGPT) 41U/L (16-63) Alkaline Phosphatase 288U/L (46-116) Total Protein 5.4g/dL (6.4-8.2) Albumin 1.6g/dL (3.4-5.0) Albumin/Globulin Ratio 0.4 (1.0-1.7) Amylase Level 33U/L (25-115) Lipase 203U/L (73-393) Problem List Problems Medical Problems: (1) Acute pancreatitis Status: Acute Assessment/Plan continue c tube Problems: MELINA KELLY MD 09/11/16 1150: SURGICAL PROGRESS NOTE Assessment/Plan Pt seen and examined. Agree with MsCadence Gifty's note Pt with c/o diffuse swelling abd soft, drain in place cont c-tube Problems: HALLEY SUE APRN Sep 11, 2016 09:20 MELINA KELLY MD Sep 11, 2016 11:50
--- NOTE | 2016-09-11 12:05 | PDOC ---
SUBJECTIVE Subjective feels better, able to keep some food down, pain better control, has swelling all over likey fluid retention stopped IVF OBJECTIVE Vital Signs Vital Signs Date Time Temp Pulse Resp B/P Pulse Ox O2 Delivery O2 Flow Rate FiO2 09/11/16 07:00 98.8 85 20 147/75 98 Room Air 98.8 09/10/16 23:00 97.8 80 18 118/80 92 Nasal Cannula 2.0 97.8 09/10/16 20:00 Nasal Cannula 2.0 09/10/16 19:00 98.8 91 19 113/65 94 Nasal Cannula 2.0 98.8 09/10/16 15:00 97.9 110 18 169/86 90 Nasal Cannula 2.0 97.9 I & O Intake and Output 09/11/16 07:00 Intake Total 1040 ml Output Total 125 ml Balance 915 ml Intake Oral 1040 ml Drainage Total 125 ml # Voids 7 # Bowel Movements 1 PHYSICAL EXAM Physical Exam abdomen less pain mild swelling extremities, fluid retention type lung clear heart RRR ASSESSMENT/PLAN Assessment/Plan 1- s/p cholecystectomy, bile drain in place 2-pancreatitis 3-liver cirrhosis , discussed no ETOH 4- hypokalemia replacing 5- diffuse swelling stopped IVF Problems: COMMENT Lab Laboratory Tests Test 09/11/16 04:22 White Blood Count 12.5x10^3/uL (4.0-11.0) Red Blood Count 3.17x10^6/uL (4.30-5.70) Hemoglobin 9.9g/dL (13.0-17.5) Hematocrit 30.6% (39.0-53.0) Mean Corpuscular Volume 97fL (79-100) Mean Corpuscular Hemoglobin 31pg (25-35) Mean Corpuscular Hemoglobin Concent 32g/dL (31-37) Red Cell Distribution Width 13.3% (11.5-14.5) Platelet Count 147x10^3/uL (140-400) Sodium Level 140mmol/L (136-145) Potassium Level 2.8mmol/L (3.5-5.1) Chloride Level 105mmol/L (98-107) Carbon Dioxide Level 27mmol/L (21-32) Anion Gap 8 (6-14) Blood Urea Nitrogen 6mg/dL (8-26) Creatinine 0.7mg/dL (0.7-1.3) Estimated GFR (Cockcroft-Gault) 139.7 BUN/Creatinine Ratio 9 (6-20) Glucose Level 105mg/dL (70-99) Calcium Level 8.1mg/dL (8.5-10.1) Total Bilirubin 4.4mg/dL (0.2-1.0) Aspartate Amino Transf (AST/SGOT) 72U/L (15-37) Alanine Aminotransferase (ALT/SGPT) 41U/L (16-63) Alkaline Phosphatase 288U/L (46-116) Total Protein 5.4g/dL (6.4-8.2) Albumin 1.6g/dL (3.4-5.0) Albumin/Globulin Ratio 0.4 (1.0-1.7) Amylase Level 33U/L (25-115) Lipase 203U/L (73-393) ANGELES CORMIER MD Sep 11, 2016 12:05
[2016-09-11] MEDS: POTASSIUM CHLORIDE 10 MEQ TABLET.ER. PO SCH ×2 (13:30→17:54)
--- NOTE | 2016-09-11 14:23 | PDOC ---
GI PROGRESS NOTES Date Date/Time DATE: 09/11/16 TIME: 14:21 Subjective Subjective tube site redressed- very little further drainage worried about "swelling in arms and legs" Objective Vitals Vital Signs Date Time Temp Pulse Resp B/P Pulse Ox O2 Delivery O2 Flow Rate FiO2 09/11/16 07:00 98.8 85 20 147/75 98 Room Air 98.8 09/10/16 23:00 97.8 80 18 118/80 92 Nasal Cannula 2.0 97.8 09/10/16 20:00 Nasal Cannula 2.0 09/10/16 19:00 98.8 91 19 113/65 94 Nasal Cannula 2.0 98.8 09/10/16 15:00 97.9 110 18 169/86 90 Nasal Cannula 2.0 97.9 Labs Labs Laboratory Tests Test 09/11/16 04:22 White Blood Count 12.5x10^3/uL (4.0-11.0) Red Blood Count 3.17x10^6/uL (4.30-5.70) Hemoglobin 9.9g/dL (13.0-17.5) Hematocrit 30.6% (39.0-53.0) Mean Corpuscular Volume 97fL (79-100) Mean Corpuscular Hemoglobin 31pg (25-35) Mean Corpuscular Hemoglobin Concent 32g/dL (31-37) Red Cell Distribution Width 13.3% (11.5-14.5) Platelet Count 147x10^3/uL (140-400) Sodium Level 140mmol/L (136-145) Potassium Level 2.8mmol/L (3.5-5.1) Chloride Level 105mmol/L (98-107) Carbon Dioxide Level 27mmol/L (21-32) Anion Gap 8 (6-14) Blood Urea Nitrogen 6mg/dL (8-26) Creatinine 0.7mg/dL (0.7-1.3) Estimated GFR (Cockcroft-Gault) 139.7 BUN/Creatinine Ratio 9 (6-20) Glucose Level 105mg/dL (70-99) Calcium Level 8.1mg/dL (8.5-10.1) Total Bilirubin 4.4mg/dL (0.2-1.0) Aspartate Amino Transf (AST/SGOT) 72U/L (15-37) Alanine Aminotransferase (ALT/SGPT) 41U/L (16-63) Alkaline Phosphatase 288U/L (46-116) Total Protein 5.4g/dL (6.4-8.2) Albumin 1.6g/dL (3.4-5.0) Albumin/Globulin Ratio 0.4 (1.0-1.7) Amylase Level 33U/L (25-115) Lipase 203U/L (73-393) Physical Exam Physical Exam abd- soft nontender- tube site redressed- no further drainage Assessment Assessment Cirrhosis jaundice- s/p cholecystostomy tube Problems: Plan Plan no further GI recommendations at this time continue monitoring MARCO BRENNAN MD Sep 11, 2016 14:23
[2016-09-11 16:00] VITALS: BP 130/69
[2016-09-11 19:00] VITALS: BP 146/69
[2016-09-11 23:00] VITALS: BP 152/80
[2016-09-12] MEDS: PIPERACILLIN/TAZOBACTAM 3.375 GM in IV NORMAL SALINE 50ML 50 ML IV SCH ×5 (00:04→23:28)
[2016-09-12] MEDS: LORAZEPAM 1 MG TABLET. PO PRN ×5 (00:11→23:28)
[2016-09-12] MEDS: IBUPROFEN 400 MG TABLET. PO PRN ×5 (01:39→23:28)
[2016-09-12 03:07] VITALS: BP 118/55
[2016-09-12] MEDS: PANTOPRAZOLE 40 MG TABLET. PO SCH (05:44)
[2016-09-12 06:38] LABS: HEMATOCRIT 32.7 % (39.0-53.0); HEMOGLOBIN 10.8 g/dL (13.0-17.5); RED BLOOD COUNT 3.46 x10^6/uL (4.30-5.70); RED CELL DISTRIBUTION WIDTH 13.4 % (11.5-14.5); WHITE BLOOD COUNT 14.2 x10^3/uL (4.0-11.0)
[2016-09-12 06:48] LABS: CALCIUM 8.2 mg/dL (8.5-10.1); CREATININE 0.8 mg/dL (0.7-1.3); GFR 119.7; POTASSIUM 3.6 mmol/L (3.5-5.1)
[2016-09-12 07:00] VITALS: BP 119/66
--- NOTE | 2016-09-12 08:18 | PDOC ---
Provider Note Provider Note vss, no temp, K+ better 3.6, LFTs better 25%- cult neg- still some diarrhea- cont same ANIKET RONQUILLO MD Sep 12, 2016 08:18
[2016-09-12] MEDS: POTASSIUM CHLORIDE 10 MEQ TABLET.ER. PO SCH ×3 (08:19→17:09)
--- NOTE | 2016-09-12 08:55 | PDOC ---
HALLEY SUE COATING OPERATOR 09/12/16 0855: SURGICAL PROGRESS NOTE Subjective tolerating fulls, some appetite having diarrhea Vital Signs Vital Signs Date Time Temp Pulse Resp B/P Pulse Ox O2 Delivery O2 Flow Rate FiO2 09/12/16 03:07 98.1 81 20 118/55 95 Room Air 98.1 09/11/16 20:00 2.0 I&O Intake and Output 09/12/16 07:00 Intake Total 960 ml Output Total 160 ml Balance 800 ml Intake Oral 960 ml Drainage Total 160 ml # Voids 9 # Bowel Movements 3 General: Alert, Oriented X3, Cooperative, No acute distress Abdomen: Soft, Other (drain in place) Labs Laboratory Tests Test 09/11/16 04:22 09/12/16 06:05 White Blood Count 12.5x10^3/uL (4.0-11.0) 14.2x10^3/uL (4.0-11.0) Red Blood Count 3.17x10^6/uL (4.30-5.70) 3.46x10^6/uL (4.30-5.70) Hemoglobin 9.9g/dL (13.0-17.5) 10.8g/dL (13.0-17.5) Hematocrit 30.6% (39.0-53.0) 32.7% (39.0-53.0) Mean Corpuscular Volume 97fL (79-100) 95fL (79-100) Mean Corpuscular Hemoglobin 31pg (25-35) 31pg (25-35) Mean Corpuscular Hemoglobin Concent 32g/dL (31-37) 33g/dL (31-37) Red Cell Distribution Width 13.3% (11.5-14.5) 13.4% (11.5-14.5) Platelet Count 147x10^3/uL (140-400) 175x10^3/uL (140-400) Sodium Level 140mmol/L (136-145) 143mmol/L (136-145) Potassium Level 2.8mmol/L (3.5-5.1) 3.6mmol/L (3.5-5.1) Chloride Level 105mmol/L (98-107) 107mmol/L (98-107) Carbon Dioxide Level 27mmol/L (21-32) 25mmol/L (21-32) Anion Gap 8 (6-14) 11 (6-14) Blood Urea Nitrogen 6mg/dL (8-26) 5mg/dL (8-26) Creatinine 0.7mg/dL (0.7-1.3) 0.8mg/dL (0.7-1.3) Estimated GFR (Cockcroft-Gault) 139.7 119.7 BUN/Creatinine Ratio 9 (6-20) Glucose Level 105mg/dL (70-99) 90mg/dL (70-99) Calcium Level 8.1mg/dL (8.5-10.1) 8.2mg/dL (8.5-10.1) Total Bilirubin 4.4mg/dL (0.2-1.0) Aspartate Amino Transf (AST/SGOT) 72U/L (15-37) Alanine Aminotransferase (ALT/SGPT) 41U/L (16-63) Alkaline Phosphatase 288U/L (46-116) Total Protein 5.4g/dL (6.4-8.2) Albumin 1.6g/dL (3.4-5.0) Albumin/Globulin Ratio 0.4 (1.0-1.7) Amylase Level 33U/L (25-115) Lipase 203U/L (73-393) Laboratory Tests Test 09/12/16 06:05 White Blood Count 14.2x10^3/uL (4.0-11.0) Red Blood Count 3.46x10^6/uL (4.30-5.70) Hemoglobin 10.8g/dL (13.0-17.5) Hematocrit 32.7% (39.0-53.0) Mean Corpuscular Volume 95fL (79-100) Mean Corpuscular Hemoglobin 31pg (25-35) Mean Corpuscular Hemoglobin Concent 33g/dL (31-37) Red Cell Distribution Width 13.4% (11.5-14.5) Platelet Count 175x10^3/uL (140-400) Sodium Level 143mmol/L (136-145) Potassium Level 3.6mmol/L (3.5-5.1) Chloride Level 107mmol/L (98-107) Carbon Dioxide Level 25mmol/L (21-32) Anion Gap 11 (6-14) Blood Urea Nitrogen 5mg/dL (8-26) Creatinine 0.8mg/dL (0.7-1.3) Estimated GFR (Cockcroft-Gault) 119.7 Glucose Level 90mg/dL (70-99) Calcium Level 8.2mg/dL (8.5-10.1) Problem List Problems Medical Problems: (1) Acute pancreatitis Status: Acute Assessment/Plan continue c tube Problems: ERLIN AGUILERA MD 09/12/16 1245: SURGICAL PROGRESS NOTE Assessment/Plan pt seen and examined agree with above no new surgical recs Problems: HALLEY SUE APRN Sep 12, 2016 08:55 ERLIN AGUILERA MD Sep 12, 2016 12:45
[2016-09-12 11:12] VITALS: BP 149/83
[2016-09-12 14:57] VITALS: BP 133/70
--- NOTE | 2016-09-12 15:02 | PDOC ---
Subjective: Subjective: Feels swollen in arms and legs. Stools - mixed loose and formed. Objective: Vital Signs: Vital Signs Date Time Temp Pulse Resp B/P Pulse Ox O2 Delivery O2 Flow Rate FiO2 09/12/16 11:12 98.8 78 20 149/83 95 Nasal Cannula 98.8 09/12/16 07:50 2.0 Labs: Laboratory Tests Test 09/12/16 06:05 White Blood Count 14.2x10^3/uL Red Blood Count 3.46x10^6/uL Hemoglobin 10.8g/dL Hematocrit 32.7% Mean Corpuscular Volume 95fL Mean Corpuscular Hemoglobin 31pg Mean Corpuscular Hemoglobin Concent 33g/dL Red Cell Distribution Width 13.4% Platelet Count 175x10^3/uL Sodium Level 143mmol/L Potassium Level 3.6mmol/L Chloride Level 107mmol/L Carbon Dioxide Level 25mmol/L Anion Gap 11 Blood Urea Nitrogen 5mg/dL Creatinine 0.8mg/dL Estimated GFR (Cockcroft-Gault) 119.7 Glucose Level 90mg/dL Calcium Level 8.2mg/dL PE: GEN: NAD LUNGS: CTAB HEART: RRR ABD: tenderness around drain site NEURO/PSYCH: A & O 3 A/P: Elevated LFTs - likely cirrhosis w/ cholecystostomy tube 09/08 -bili 4.4, AFP WNL, INR 1.6, Hep panel neg -US: hepatomegaly w/ gallbladder wall thickening CT: severe diffuse hepatic steatosis and hepatomegaly, 4.8 cm region of hyperenhancement in the right hepatic lobe (mass or a focus of fatty sparing), no biliary dilatation or cause for biliary obstruction is identified, gallbladder wall thickening likely reflects liver disease HIDA: no evidence of acute cholecystitis, enlarged liver MRI: 4.8 cm region in right hepatic lobe of hyperintensity/hyperenhancement possibly region of vascular shunting and fatty sparing rather than mass (follow- up imaging recommended), hepatic steatosis/hepatomegaly, cholelithiasis -h/o alcoholic pancreatitis Leukocytosis, fever -on IV atbx -- Will review w/ Dr. Bray. NAYE SHELDON Sep 12, 2016 15:02
[2016-09-12 19:00] VITALS: BP 142/76
[2016-09-12 23:00] VITALS: BP 155/80
[2016-09-13 03:00] VITALS: BP 143/75
[2016-09-13] MEDS: PIPERACILLIN/TAZOBACTAM 3.375 GM in IV NORMAL SALINE 50ML 50 ML IV SCH ×4 (05:46→23:28)
[2016-09-13] MEDS: PANTOPRAZOLE 40 MG TABLET. PO SCH (05:58)
[2016-09-13] MEDS: LORAZEPAM 1 MG TABLET. PO PRN ×4 (05:58→23:29)
[2016-09-13] MEDS: IBUPROFEN 400 MG TABLET. PO PRN ×3 (05:58→16:27)
[2016-09-13 07:00] VITALS: BP 120/66
--- NOTE | 2016-09-13 07:48 | PDOC ---
Provider Note Provider Note vss, no temp- more diarrhea lately so will do c diff again re zosyn- LFTs pending, cont same for now ANIKET RONQUILLO MD Sep 13, 2016 07:48
--- NOTE | 2016-09-13 09:58 | PDOC ---
LINETTEHALLEY Jonny RADIOLOGY EQUIPMENT SERVICER 09/13/16 0958: SURGICAL PROGRESS NOTE Subjective having diarrhea tolerating diet Vital Signs Vital Signs Date Time Temp Pulse Resp B/P Pulse Ox O2 Delivery O2 Flow Rate FiO2 09/13/16 09:15 Room Air 09/13/16 07:00 98.3 84 18 120/66 95 98.3 09/13/16 03:00 2.0 I&O Intake and Output 09/13/16 07:00 Intake Total 510 ml Output Total 240 ml Balance 270 ml Intake Oral 360 ml IV Total 150 ml Drainage Total 240 ml # Voids 9 # Bowel Movements 2 General: Alert, Oriented X3, Cooperative, No acute distress Abdomen: Soft Extremities: Other (tenderness at drain site ) Labs Laboratory Tests Test 09/12/16 06:05 White Blood Count 14.2x10^3/uL (4.0-11.0) Red Blood Count 3.46x10^6/uL (4.30-5.70) Hemoglobin 10.8g/dL (13.0-17.5) Hematocrit 32.7% (39.0-53.0) Mean Corpuscular Volume 95fL (79-100) Mean Corpuscular Hemoglobin 31pg (25-35) Mean Corpuscular Hemoglobin Concent 33g/dL (31-37) Red Cell Distribution Width 13.4% (11.5-14.5) Platelet Count 175x10^3/uL (140-400) Sodium Level 143mmol/L (136-145) Potassium Level 3.6mmol/L (3.5-5.1) Chloride Level 107mmol/L (98-107) Carbon Dioxide Level 25mmol/L (21-32) Anion Gap 11 (6-14) Blood Urea Nitrogen 5mg/dL (8-26) Creatinine 0.8mg/dL (0.7-1.3) Estimated GFR (Cockcroft-Gault) 119.7 Glucose Level 90mg/dL (70-99) Calcium Level 8.2mg/dL (8.5-10.1) Problem List Problems Medical Problems: (1) Acute pancreatitis Status: Acute Assessment/Plan continue c tube no surgical plans c diff pending Problems: ERLIN AGIULERA MD 09/13/16 1037: SURGICAL PROGRESS NOTE Assessment/Plan pt seen, examined agree with above no new surg recs Problems: HALLEY SUE APRN Sep 13, 2016 09:58 ERLIN AGUILERA MD Sep 13, 2016 10:37
[2016-09-13 11:00] VITALS: BP 138/71
[2016-09-13 11:39] LABS: AMYLASE 47 U/L (25-115)
[2016-09-13 11:48] LABS: ALBUMIN 1.7 g/dL (3.4-5.0); DIRECT BILIRUBIN 2.4 mg/dL (0.0-0.2); TOTAL BILIRUBIN 3.1 mg/dL (0.2-1.0)
--- NOTE | 2016-09-13 12:44 | PDOC ---
Subjective: Subjective: Tolerating full liquids w/ some nausea. Diarrhea. Objective: Vital Signs: Vital Signs Date Time Temp Pulse Resp B/P Pulse Ox O2 Delivery O2 Flow Rate FiO2 09/13/16 11:00 98.1 66 18 138/71 95 Room Air 98.1 09/13/16 03:00 2.0 Labs: Laboratory Tests Test 09/13/16 11:00 Total Bilirubin 3.1mg/dL Direct Bilirubin 2.4mg/dL Aspartate Amino Transf (AST/SGOT) 104U/L Alanine Aminotransferase (ALT/SGPT) 46U/L Alkaline Phosphatase 244U/L Total Protein 6.0g/dL Albumin 1.7g/dL Amylase Level 47U/L Lipase 490U/L PE: GEN: NAD LUNGS: CTAB HEART: RRR ABD: less tender around drain NEURO/PSYCH: A & O 3 A/P: Abnormal LFTs - likely cirrhosis, s/p cholecystostomy tube 09/08 -bili and Alk Phos w/ some slow improvement, AFP WNL, Hep panel neg, lipase now elevated (490) -US: hepatomegaly, CT: severe diffuse hepatic steatosis and hepatomegaly, 4.8 cm region of hyperenhancement in the right hepatic lobe, MRI: 4.8 cm region in right hepatic lobe - possibly region of vascular shunting and fatty sparing rather than mass, hepatic steatosis, cholelithiasis -h/o alcoholic pancreatitis, h/o GERD on PPI -WBC up a little, on Zosyn still Diarrhea, n/v -C Diff pending -tolerating full liquids -- Note mild elevation in lipase - will review w/ Dr. Bray. NAYE SHELDON Sep 13, 2016 12:44
[2016-09-13] MEDS: HYDROCODONE/APAP 5/325MG TABLET. PO PRN ×2 (13:38→23:29)
[2016-09-13 15:00] VITALS: BP 137/74
[2016-09-13 19:00] VITALS: BP 135/75
[2016-09-13 23:00] VITALS: BP 146/74
[2016-09-14 02:53] VITALS: BP 137/71
[2016-09-14] MEDS: IBUPROFEN 400 MG TABLET. PO PRN ×5 (04:20→21:30)
[2016-09-14] MEDS: PANTOPRAZOLE 40 MG TABLET. PO SCH ×2 (04:24→09:09)
[2016-09-14] MEDS: PIPERACILLIN/TAZOBACTAM 3.375 GM in IV NORMAL SALINE 50ML 50 ML IV SCH (05:58)
[2016-09-14 07:15] VITALS: BP 122/70
--- NOTE | 2016-09-14 08:05 | PDOC ---
Provider Note Provider Note still some diarrhea but c diff neg- tb down 3.1/2.4, erst better - will go to augmentin now, follow labs ANIKET RONQUILLO MD Sep 14, 2016 08:05
[2016-09-14] MEDS: AMOXICILLIN/K CLAV 875/125MG TABLET. PO SCH ×2 (09:09→21:30)
[2016-09-14] MEDS: LORAZEPAM 1 MG TABLET. PO PRN ×3 (09:10→17:41)
--- NOTE | 2016-09-14 10:40 | PDOC ---
Subjective: Subjective: Still having loose stools. No n/v, tolerating full liquids. Objective: Vital Signs: Vital Signs Date Time Temp Pulse Resp B/P Pulse Ox O2 Delivery O2 Flow Rate FiO2 09/14/16 07:15 98.4 71 18 122/70 96 Room Air 98.4 Labs: Laboratory Tests Test 09/13/16 11:00 Total Bilirubin 3.1mg/dL Direct Bilirubin 2.4mg/dL Aspartate Amino Transf (AST/SGOT) 104U/L Alanine Aminotransferase (ALT/SGPT) 46U/L Alkaline Phosphatase 244U/L Total Protein 6.0g/dL Albumin 1.7g/dL Amylase Level 47U/L Lipase 490U/L PE: GEN: NAD LUNGS: clear anteriorly HEART: S1S2 ABD: NABS, mild tenderness around drain NEURO/PSYCH: A & O 3 A/P: Abnormal LFTs - likely cirrhosis, s/p cholecystostomy tube 09/08 -bili and Alk Phos improving, AFP WNL, Hep panel neg, lipase a little elevated (490) -US: hepatomegaly, CT: severe diffuse hepatic steatosis and hepatomegaly, 4.8 cm region of hyperenhancement in the right hepatic lobe, MRI: 4.8 cm region in right hepatic lobe - possibly region of vascular shunting and fatty sparing rather than mass, hepatic steatosis, cholelithiasis -h/o alcoholic pancreatitis, h/o GERD on PPI -changed to PO atbx Diarrhea -C Diff neg x 2 -- Try GI soft. Add probiotics. NAYE SHELDON Sep 14, 2016 10:40
[2016-09-14 11:10] VITALS: BP 133/72
[2016-09-14] MEDS: LACTOBACILLUS ACIDOPH & BULGAR 1 TABLET. PO SCH ×2 (12:45→17:40)
--- NOTE | 2016-09-14 13:12 | PDOC ---
SURGICAL PROGRESS NOTE Subjective no new complaints just finished a sandwich for lunch still has loose stools Vital Signs Vital Signs Date Time Temp Pulse Resp B/P Pulse Ox O2 Delivery O2 Flow Rate FiO2 09/14/16 11:10 98.3 66 20 133/72 98 Room Air 98.3 I&O Intake and Output 09/14/16 07:00 Intake Total 1360 ml Output Total 355 ml Balance 1005 ml Intake Oral 1360 ml Drainage Total 355 ml # Voids 9 # Bowel Movements 8 PATIENT HAS A NAJERA: No General: Alert, Oriented X3, Cooperative, No acute distress Abdomen: Soft, Other (pizano bilious outut in cholecystostomy tube) Labs Laboratory Tests Test 09/13/16 09:30 09/13/16 11:00 Clostridium difficile Toxin (PCR) Negative (Negative) Total Bilirubin 3.1mg/dL (0.2-1.0) Direct Bilirubin 2.4mg/dL (0.0-0.2) Aspartate Amino Transf (AST/SGOT) 104U/L (15-37) Alanine Aminotransferase (ALT/SGPT) 46U/L (16-63) Alkaline Phosphatase 244U/L (46-116) Total Protein 6.0g/dL (6.4-8.2) Albumin 1.7g/dL (3.4-5.0) Amylase Level 47U/L (25-115) Lipase 490U/L (73-393) Problem List Problems Medical Problems: (1) Acute pancreatitis Status: Acute Assessment/Plan alcoholic liver disease cholelithiasis pancreatitis (gallstone vs alcoholic) no new surg recs could follow as outpatient if released NO ALCOHOL Problems: ERLIN AGUILERA MD Sep 14, 2016 13:12
[2016-09-14 15:15] VITALS: BP 144/80
[2016-09-14 19:00] VITALS: BP 132/70
[2016-09-14 23:00] VITALS: BP 146/67
[2016-09-15] MEDS: HYDROCODONE/APAP 5/325MG TABLET. PO PRN ×4 (00:03→22:13)
[2016-09-15] MEDS: LORAZEPAM 1 MG TABLET. PO PRN (00:03)
[2016-09-15 03:00] VITALS: BP 136/73
[2016-09-15] MEDS: IBUPROFEN 400 MG TABLET. PO PRN (06:34)
--- NOTE | 2016-09-15 07:31 | PDOC ---
Provider Note Provider Note vss, no temp- exam same- LFTs pending- question is duration of C-tube and paln after removal- cpm ANIKET RONQUILLO MD Sep 15, 2016 07:31
[2016-09-15 07:40] VITALS: BP 125/72
[2016-09-15 08:47] LABS: ALBUMIN 1.9 g/dL (3.4-5.0); ALBUMIN/GLOBULIN RATIO 0.4 (1.0-1.7); CALCIUM 8.9 mg/dL (8.5-10.1); CREATININE 0.8 mg/dL (0.7-1.3); GFR 119.7; POTASSIUM 3.7 mmol/L (3.5-5.1); TOTAL BILIRUBIN 2.7 mg/dL (0.2-1.0); TOTAL PROTEIN 6.8 g/dL (6.4-8.2)
[2016-09-15] MEDS: LACTOBACILLUS ACIDOPH & BULGAR 1 TABLET. PO SCH ×3 (09:30→17:01)
[2016-09-15] MEDS: AMOXICILLIN/K CLAV 875/125MG TABLET. PO SCH ×2 (09:30→20:33)
--- NOTE | 2016-09-15 09:57 | PDOC ---
HALLEY SUE C 13 CATAPULT OPERATOR 09/15/16 0957: SURGICAL PROGRESS NOTE Subjective tolerating diet hoping home soon Vital Signs Vital Signs Date Time Temp Pulse Resp B/P Pulse Ox O2 Delivery O2 Flow Rate FiO2 09/15/16 07:40 97.5 65 20 125/72 100 Nasal Cannula 97.5 I&O Intake and Output 09/15/16 07:00 Intake Total 1250 ml Output Total 30 ml Balance 1220 ml Intake Oral 1250 ml Drainage Total 30 ml # Voids 3 General: Alert, Oriented X3, Cooperative, No acute distress Abdomen: Soft, Other (c tube) Labs Laboratory Tests Test 09/13/16 11:00 09/15/16 08:10 Total Bilirubin 3.1mg/dL (0.2-1.0) 2.7mg/dL (0.2-1.0) Direct Bilirubin 2.4mg/dL (0.0-0.2) Aspartate Amino Transf (AST/SGOT) 104U/L (15-37) 182U/L (15-37) Alanine Aminotransferase (ALT/SGPT) 46U/L (16-63) 73U/L (16-63) Alkaline Phosphatase 244U/L (46-116) 267U/L (46-116) Total Protein 6.0g/dL (6.4-8.2) 6.8g/dL (6.4-8.2) Albumin 1.7g/dL (3.4-5.0) 1.9g/dL (3.4-5.0) Amylase Level 47U/L (25-115) Lipase 490U/L (73-393) Sodium Level 143mmol/L (136-145) Potassium Level 3.7mmol/L (3.5-5.1) Chloride Level 107mmol/L (98-107) Carbon Dioxide Level 25mmol/L (21-32) Anion Gap 11 (6-14) Blood Urea Nitrogen 4mg/dL (8-26) Creatinine 0.8mg/dL (0.7-1.3) Estimated GFR (Cockcroft-Gault) 119.7 BUN/Creatinine Ratio 5 (6-20) Glucose Level 96mg/dL (70-99) Calcium Level 8.9mg/dL (8.5-10.1) Albumin/Globulin Ratio 0.4 (1.0-1.7) Laboratory Tests Test 09/15/16 08:10 Sodium Level 143mmol/L (136-145) Potassium Level 3.7mmol/L (3.5-5.1) Chloride Level 107mmol/L (98-107) Carbon Dioxide Level 25mmol/L (21-32) Anion Gap 11 (6-14) Blood Urea Nitrogen 4mg/dL (8-26) Creatinine 0.8mg/dL (0.7-1.3) Estimated GFR (Cockcroft-Gault) 119.7 BUN/Creatinine Ratio 5 (6-20) Glucose Level 96mg/dL (70-99) Calcium Level 8.9mg/dL (8.5-10.1) Total Bilirubin 2.7mg/dL (0.2-1.0) Aspartate Amino Transf (AST/SGOT) 182U/L (15-37) Alanine Aminotransferase (ALT/SGPT) 73U/L (16-63) Alkaline Phosphatase 267U/L (46-116) Total Protein 6.8g/dL (6.4-8.2) Albumin 1.9g/dL (3.4-5.0) Albumin/Globulin Ratio 0.4 (1.0-1.7) Problem List Problems Medical Problems: (1) Acute pancreatitis Status: Acute Assessment/Plan c tube in place for minimum 6 weeks can FU in clinic with Dr Aguilera when ready for discharge Problems: ERLIN AGUILERA MD 09/15/16 1606: SURGICAL PROGRESS NOTE Assessment/Plan as above Problems: HALLEY SUE APRN Sep 15, 2016 09:57 ERLIN AGUILERA MD Sep 15, 2016 16:06
[2016-09-15 10:40] VITALS: BP 143/75
--- NOTE | 2016-09-15 10:53 | PDOC ---
Subjective: Subjective: Eating w/o n/v. Had 2-3 loose stools today which is improved. Maybe streaks of blood once. Asks about colonoscopy. Cold sweats overnight. Would like to DC soon. Objective: Vital Signs: Vital Signs Date Time Temp Pulse Resp B/P Pulse Ox O2 Delivery O2 Flow Rate FiO2 09/15/16 08:00 Room Air 09/15/16 07:40 97.5 65 20 125/72 100 97.5 Labs: Laboratory Tests Test 09/15/16 08:10 Sodium Level 143mmol/L Potassium Level 3.7mmol/L Chloride Level 107mmol/L Carbon Dioxide Level 25mmol/L Anion Gap 11 Blood Urea Nitrogen 4mg/dL Creatinine 0.8mg/dL Estimated GFR (Cockcroft-Gault) 119.7 BUN/Creatinine Ratio 5 Glucose Level 96mg/dL Calcium Level 8.9mg/dL Total Bilirubin 2.7mg/dL Aspartate Amino Transf (AST/SGOT) 182U/L Alanine Aminotransferase (ALT/SGPT) 73U/L Alkaline Phosphatase 267U/L Total Protein 6.8g/dL Albumin 1.9g/dL Albumin/Globulin Ratio 0.4 PE: GEN: NAD, cheerful LUNGS: CTAB HEART: RRR ABD: S/ND, +cholecystostomy tube NEURO/PSYCH: A & O 3 A/P: Abnormal LFTs - likely cirrhosis, s/p cholecystostomy tube 09/08 -bili improved, Alk Phos and transaminases still some elevation -AFP WNL, Hep panel neg -h/o alcoholic pancreatitis -MRI: 4.8 cm region in right hepatic lobe - possibly region of vascular shunting and fatty sparing rather than mass, hepatic steatosis, cholelithiasis Diarrhea - slowing -C Diff neg x 2, on probiotics -did have some hematochezia earlier this admission, some drift in Hgb since admission -says previous colonoscopy w/ polyps ~15 years ago -- Tolerating diet. Diarrhea improving. Discussed outpatient colonoscopy - will review w/ Dr. Bray. NAYE SHELDON Sep 15, 2016 10:53
[2016-09-15] MEDS ORDERED: LORAZEPAM 1 MG TABLET. PO PRN (12:00)
[2016-09-15 13:16] LABS: CHOLESTEROL/HDL RATIO 19.3
[2016-09-15 14:30] VITALS: BP 144/76
[2016-09-15] MEDS: PROCHLORPERAZINE 10 MG/2 ML VIAL. IV PRN (17:50)
[2016-09-15 19:00] VITALS: BP 141/67
[2016-09-15 23:00] VITALS: BP 141/67
[2016-09-16] MEDS: PANTOPRAZOLE 40 MG TABLET. PO SCH (06:28)
[2016-09-16 07:40] VITALS: BP 132/66
--- NOTE | 2016-09-16 07:43 | DISCH ---
DISCHARGE INSTRUCTIONS Condition on Discharge Condition on Discharge: Stable Activity After Discharge Activity Instructions for Disc: No restrictions Diet after Discharge Diet after Discharge: Low Sodium 4 gm Follow-Up Follow up with: per gi/surg ANIKET RONQUILLO MD Sep 16, 2016 07:43
--- NOTE | 2016-09-16 07:48 | PDOC ---
Provider Note Provider Note [id number] ANIKET RONQUILLO MD Sep 16, 2016 07:48
--- NOTE | 2016-09-16 08:11 | DS ---
DATE OF DISCHARGE: 09/16/2016 HOSPITAL SUMMARY: A 61-year-old black male with a history of alcoholic liver disease, came in with fever, pain and nausea and evidence of jaundice. Sodium was 123 on admission and bilirubin was 5.7 with direct fraction of 4.2. Lipase was normal. AFP was normal at 1.9. PSA normal at 0.23. He had leukocytosis on admission, which has since improved. INR is 1.6, consistent with liver disease. C. diff toxin was negative as was studies of hepatitis A, B and C viruses. The bilirubin has gradually declined down to the level 2.7 with direct fraction approximately 80% of that and the transaminases have all improved slowly as well. He received IV antibiotics with Zosyn and subsequently oral Augmentin and because of a large cirrhotic looking liver and the risks of surgeries, cholecystostomy tube was placed per Dr. Bautista with excellent drainage in improvement of biliary stasis. CT scan showed severe diffuse hepatomegaly and steatosis and ill-defined and right hepatic lobe was felt more likely to be cirrhosis than tumor. MRI was consistent with this not being a mass, but more of a vascular shunting area. HIDA scan showed no evidence of acute cholecystitis. At this time, he is feeling better, afebrile, and comfortable to be followed as an outpatient. FINAL DIAGNOSES: 1. Obstructive jaundice secondary to alcoholic liver disease. 2. Hyponatremia, resolved. OPERATIONS AND PROCEDURES: Cholecystostomy tube placement. COMPLICATIONS: None. CONSULTATIONS: Dr. Baptiste's group and Dr. Bray. DISPOSITION: He will continue on probiotics per Dr. Bray, omeprazole. He will stay off his amlodipine as his blood pressure is good and no antibiotics at this time. Ibuprofen for pain as needed. Follow up with GI in 1-2 weeks and the tube will be in place for approximately another month and then decision to remove at that time per GI and surgery. I will see him on a p.r.n. basis for his blood pressure, but he will be off his blood pressure medicine amlodipine for now. ANIKET RONQUILLO MD DR: KEYUR/christy JOB#: [id number] / [id number]
[2016-09-16] MEDS: LACTOBACILLUS ACIDOPH & BULGAR 1 TABLET. PO SCH ×2 (09:01→12:31)
[2016-09-16] MEDS: IBUPROFEN 400 MG TABLET. PO PRN (09:03)
[2016-09-16 10:25] VITALS: BP 139/69
--- NOTE | 2016-09-16 11:39 | PDOC ---
Subjective: Subjective: Doing better, anxious to go home. Diarrhea better. Objective: Vital Signs: Vital Signs Date Time Temp Pulse Resp B/P Pulse Ox O2 Delivery O2 Flow Rate FiO2 09/16/16 10:25 98.4 63 20 139/69 93 Room Air 98.4 PE: GEN: NAD LUNGS: CTAB HEART: RRR ABD: S/ND/NT, cholecystostomy tube NEURO/PSYCH: A & O 3 A/P: Abnormal LFTs - likely cirrhosis, s/p cholecystostomy tube 09/08 -bili improved -AFP WNL, Hep panel neg -h/o alcoholic pancreatitis -MRI: 4.8 cm region in right hepatic lobe - possibly region of vascular shunting and fatty sparing rather than mass, hepatic steatosis, cholelithiasis Diarrhea - slowing -C Diff neg x 2, on probiotics -says previous colonoscopy w/ polyps ~15 years ago -- DC planned for today - okay per GI. Follow-up for outpatient colonoscopy. D/w RN. NAYE SHELDON Sep 16, 2016 11:39 GERRY SPENCER MD Sep 16, 2016 11:40
== END 2016-09-16 14:26 | disposition home health service (06) | DRG 871 ==
LOC: 5 NORTH 10:30
PROVIDERS: ADMIT Family Medicine; ATTEND Family Medicine
PROC: 0F9430Z Drainage of Gallbladder with Drainage Device, Percutaneous Approach (ICD-10-PCS; principal; 2016-09-09)
DX: A41.9 Sepsis, unspecified organism (principal); K83.1 Obstruction of bile duct; E87.1 Hypo-osmolality and hyponatremia; E11.9 Type 2 diabetes mellitus without complications; E77.8 Other disorders of glycoprotein metabolism; E87.6 Hypokalemia; I10 Essential (primary) hypertension; K21.9 Gastro-esophageal reflux disease without esophagitis; K70.9 Alcoholic liver disease, unspecified; K76.0 Fatty (change of) liver, not elsewhere classified; N28.9 Disorder of kidney and ureter, unspecified; Z80.42 Family history of malignant neoplasm of prostate; Z90.49 Acquired absence of other specified parts of digestive tract; Z79.899 Other long term (current) drug therapy; Z88.8 Allergy status to other drugs, medicaments and biological substances
CPT/HCPCS: 36415; 47490; 71020; 74170; 74183; 76705; 78226; 80048; 80053; 80061; 80074; 80076; 81001; 82105; 82150; 83690; 85027; 85610; 86803; 87071; 87075; 87086; 87205; 87324; 96374; 96375; 99406; A4215; A9537; A9585; C1729; C1892; G0103; J0780; J2250; J2270; J2405; J2543; J3010; Q9966; Q9967; 97110; 97116

== ENCOUNTER → 2016-10-17 | Outpatient (CLI) | payer OTHER, MEDICARE ==
[2016-10-17 15:26] LABS: BASO % 1 % (0-3); EOS % 6 % (0-3); HEMATOCRIT 33.9 % (39.0-53.0); HEMOGLOBIN 11.1 g/dL (13.0-17.5); LYMPH # 3.7 x10^3/uL (1.0-4.8); LYMPH % 59 % (24-48); MEAN CORPUSCULAR HEMOGLOBIN 30 pg (25-35); MEAN CORPUSCULAR HGB CONC 33 g/dL (31-37); MEAN CORPUSCULAR VOLUME 93 fL (79-100); MONO % 11 % (0-9); NEUT % 24 % (31-73); PLATELET COUNT 241 x10^3/uL (140-400); RED BLOOD COUNT 3.66 x10^6/uL (4.30-5.70); RED CELL DISTRIBUTION WIDTH 14.4 % (11.5-14.5); WHITE BLOOD COUNT 6.2 x10^3/uL (4.0-11.0)
[2016-10-17 15:37] LABS: INR 1.1 (0.8-1.1); PROTHROMBIN TIME PATIENT 13.1 SEC (11.7-14.0)
[2016-10-17 16:01] LABS: ALBUMIN 3.3 g/dL (3.4-5.0); CALCIUM 9.4 mg/dL (8.5-10.1); CREATININE 0.8 mg/dL (0.7-1.3); DIRECT BILIRUBIN 0.4 mg/dL (0.0-0.2); GFR 119.7; POTASSIUM 3.7 mmol/L (3.5-5.1); TOTAL BILIRUBIN 0.6 mg/dL (0.2-1.0); TOTAL PROTEIN 7.8 g/dL (6.4-8.2)
[2016-10-17 18:02] LABS: % EOS 2 % (0-5)
[2016-10-17 18:03] LABS: PLT ESTIMATE ADEQUATE (ADEQUATE)
[2016-10-17 18:04] LABS: OVALOCYTES OCC; POLYCHROMASIA SLIGHT; STOMATOCYTES OCC
== END | disposition home or self-care (01) ==
LOC: LAB 14:57
PROVIDERS: ATTEND Surgery
DX: K85.90 Acute pancreatitis without necrosis or infection, unspecified (principal); K81.9 Cholecystitis, unspecified; K70.9 Alcoholic liver disease, unspecified
CPT/HCPCS: 36415; 80048; 80076; 82150; 83690; 85007; 85027; 85610

== ENCOUNTER 2016-10-20 06:51 | Day surgery (SDC) | payer OTHER ==
[~2016-10-20] VITALS: Ht 188 cm; Wt 92.1 kg
[2016-10-20] MEDS ORDERED: BUPIVAC MPF-EPI 0.5%-1:200000 30 ML VIAL. ONE (06:55)
[2016-10-20] MEDS ORDERED: SURGICEL HEMOSTAT 4X8 EACH. ONE (06:55)
[2016-10-20] MEDS ORDERED: IOHEXOL 300 MG/ML 50 ML VIAL. ONE (06:56)
[2016-10-20] MEDS ORDERED: ROCURONIUM 50 MG/5 ML VIAL. ONE (07:26)
[2016-10-20] MEDS ORDERED: DEXAMETHASONE SOD PHOS 20 MG/5 ML VIAL. ONE (07:26)
[2016-10-20] MEDS ORDERED: ONDANSETRON PF 4 MG/2 ML VIAL. ONE (07:26)
[2016-10-20] MEDS ORDERED: FENTANYL PF 100 MCG/2 ML VIAL. ONE (07:26)
[2016-10-20] MEDS ORDERED: LIDOCAINE 2% 100 MG/5 ML SYRINGE. ONE (07:26)
[2016-10-20] MEDS ORDERED: PROPOFOL 20 ML IV ONE (07:26)
[2016-10-20] MEDS ORDERED: SEVOFLURANE 61 TO 120 MINUTES. IH ONE (07:26)
[2016-10-20] MEDS ORDERED: NEOSTIGMINE METHYLSULFATE 5 MG/5 ML SYRINGE. ONE (07:27)
[2016-10-20] MEDS ORDERED: GLYCOPYRROLATE 1 MG/5 ML VIAL. ONE (07:27)
[2016-10-20] MEDS ORDERED: LACT1CAP6 PO (07:49)
[2016-10-20] MEDS ORDERED: CYAN500T PO (07:49)
[2016-10-20] MEDS ORDERED: CEFAZOLIN 2GM PREMIX 50 ML IV ONE (07:53)
[2016-10-20] MEDS ORDERED: IV RINGERS,LACTATED 1000ML 1,000 ML IV SCH ×2 (08:00→09:36)
--- NOTE | 2016-10-20 09:04 | RAD ---
Intraoperative cholangiogram, 10/20/2016: History: Cholecystectomy 3 spot films from surgery are presented for review. Contrast has been injected into the cystic duct remnant. 0.2 minutes of fluoroscopy time was utilized. There is good flow of contrast into the duodenum at the ampulla. The common duct is of normal caliber. No filling defect is seen in the duct to suggest a retained calculus. The incompletely opacified intrahepatic ducts are unremarkable. A fragment of tubing overlying the gallbladder fossa region reportedly represents an old cholecystostomy drain. IMPRESSION: No significant abnormality is detected.
--- NOTE | 2016-10-20 09:41 | PDOC ---
BRIEF OPERATIVE NOTE Date: Oct 20, 2016 Pre-Op Diagnosis gall stone pancreatitis Post-Op Diagnosis same Procedure Performed l/s cholecystectomy with cholangiograms, liver biopsy Surgeon Emile MELGAR Anesthesia Type: General Blood Loss 10cc IV Fluid 450cc Specimens Obtained GB, liver biopsy Findings decompressed GB, normal grams, fatty change liver Complications none Additional Remarks Wk # [id number] ERLIN AGUILERA MD Oct 20, 2016 09:41
[2016-10-20] MEDS ORDERED: PROCHLORPERAZINE 10 MG/2 ML VIAL. ONE (09:42)
[2016-10-20] MEDS: PROCHLORPERAZINE 10 MG/2 ML VIAL. IV PRN ×2 (09:43→10:30)
[2016-10-20] MEDS: FENTANYL PF 100 MCG/2 ML VIAL. IV PRN ×4 (09:44→10:25)
[2016-10-20] MEDS ORDERED: LIDOCAINE 1% 1 ML SYRINGE. ID PRN (09:45)
[2016-10-20] MEDS ORDERED: ACETAMINOPHEN INTRAVENOUS 100 ML IV ONE (09:45)
[2016-10-20] MEDS ORDERED: ONDANSETRON PF 4 MG/2 ML VIAL. IV PRN (09:45)
[2016-10-20] MEDS ORDERED: HYDROMORPHONE 2 MG/ML VIAL. IV PRN (09:45)
[2016-10-20] MEDS ORDERED: FENTANYL PF 100 MCG/2 ML VIAL. IV PRN (09:45)
[2016-10-20] MEDS: MORPHINE SULFATE 2 MG/ML DISP.SYRIN. IV PRN ×4 (10:04→10:56)
[2016-10-20] MEDS ORDERED: OXYCODONE/APAP 5/325 TABLET. PO ONE (10:15)
[2016-10-20] MEDS ORDERED: OXYCODONE/APAP 7.5/325 TABLET. PO ONE (10:30)
--- NOTE | 2016-10-20 10:32 | OP ---
DATE OF SURGERY: 10/20/2016 PREOPERATIVE DIAGNOSIS: Gallstone pancreatitis. POSTOPERATIVE DIAGNOSIS: Gallstone pancreatitis. PROCEDURE: Laparoscopic cholecystectomy with cholangiograms, liver biopsy. SURGEON: Jalil Aguilera M.D. MICROMATIC HONE OPERATOR: TALIA Reyna. ANESTHESIA: General endotracheal. BLOOD LOSS: 10. INTRAVENOUS FLUID: 450. INDICATIONS: The patient is a 61-year-old who ____ weeks had a cholecystostomy tube placed to allow resolution of some acute pancreatitis and hepatic changes. His labs normalized and he is brought for cholecystectomy. OPERATIVE FINDINGS: The liver was slightly irregular with some fatty change, the gallbladder was decompressed with the tube in place. Visual inspection of the remainder of the abdomen failed to reveal obvious abnormalities. DESCRIPTION OF PROCEDURE: The patient brought to the operating suite, given a general endotracheal anesthetic and the abdomen prepped and draped in usual sterile fashion. An infraumbilical incision was made and a 5 mm Visiport used to gain access into the abdominal cavity taking care to avoid injury to abdominal contents. Pneumoperitoneum was established. Camera inserted and inspection carried out with results as noted above. With the table in reverse Trendelenburg rolled to left, the epigastric, midclavicular, and lateral ports were placed under direct vision. The cholecystostomy tube ____ a small portion of the liver at its edge, but we were able to retract the gallbladder superolaterally. The cystic duct and cystic artery were exposed. The duct was clipped on the gallbladder side. Cholangiograms were made. These were normal. In light of this, the catheter was removed and the cystic duct was clipped x 3 and divided taking care to avoid injury or compromise of the common duct. The cystic artery was clipped and divided and the gallbladder freed from the bed with cautery dissection and placed in an EndoCatch bag. We decreased the intra-abdominal pressure to 6 cm of water and using a 14-gauge Koko-Cut needle, liver biopsy was obtained. Hemostasis with the biopsy site obtained with cautery. Hemostasis was good. A small piece of Surgicel was placed over the biopsy site. Gallbladder delivered through the epigastric incision. A 19-Vietnamese round Daniele drain was brought through the epigastric port out the lateral ports, sewn to the skin with silk stitch and left in the subhepatic space for postoperative drainage. Epigastric incision closed with interrupted 0 Vicryl suture. At 6 cm of water, intraabdominal pressure, no bleeding was seen from the epigastric closure or the midclavicular port site after its removal or from the drain site or from the area of the liver biopsy. Abdomen decompressed, camera slowly removed, no bleeding seen. Skin incisions closed with subcuticular 4-0 Monocryl. Steri-Strips and sterile dressings applied. The patient was awakened from his anesthetic and taken to the recovery room in satisfactory condition. JALIL AGUILERA MD DR: KIRA/christy JOB#: [id number] / [id number]
[2016-10-20 12:00] VITALS: BP 162/85
--- NOTE | 2016-10-20 12:00 | DISCH ---
DISCHARGE INSTRUCTIONS Condition on Discharge Condition on Discharge: Stable Activity After Discharge Activity Instructions for Disc: Activity as tolerated, Avoid exertion Driving Instructions after Dis: Do not drive (3-4 days) Diet after Discharge Diet after Discharge: Regular Wound Incision Care Wound/Incision Care: Ice to area for comfort Other wound/incision instructi: november shower Monday Follow-Up Follow up with: Emile Monday with EMELI output ERLIN AGUILERA MD Oct 20, 2016 12:00
--- NOTE | 2016-10-21 15:00 | PATHOLOGY ---
PATHOLOGY REPORT * * * * * * * * FINAL DIAGNOSIS: A. Gallbladder, laparoscopic cholecystectomy: - Acute and chronic cholecystitis with eosinophils. B. Liver biopsy: - Results to be reported separately. COMMENT: There are no calculi identified within the gallbladder lumen or specimen container. Sections of the gallbladder show chronic and focal acute inflammation with focally increased eosinophils. There is no evidence of malignancy. The liver biopsy results will be reported separately. (JPM:mgr; d/t: 10/21/16) Special Stains Performed: Iron stain, trichrome stain, reticulin stain, PAS stain, and PAS with diastase. REPORT ELECTRONICALLY SIGNED BY: Gigi Aiken M.D. DATE/TIME: 10/21/2016 14:59 * * * * * * * * GROSS PATHOLOGY: A. Received in formalin labeled "Dileep Jarvis - gallbladder and contents," is a 6.8 x 2.5 x 1.4 cm, intact gallbladder with pink-alba, diffusely hemorrhagic, and wrinkled serosal surfaces. Opening the gallbladder reveals dark red, roughened, and granular mucosa and an average wall thickness of 0.2 cm. A 9.4 cm in length blue plastic tubing with a 0.3 cm diameter is found within the gallbladder. Calculi are not present and no masses are noted grossly. [employer] sections from the body and fundus are submitted along with the proximal margin in cassette A1. B. Received in formalin labeled "Dileep Jarvis and liver biopsy," is a single needle core of alba soft tissue measuring 1.4 cm in length and less than 0.1 cm in diameter. The specimen is submitted entirely in cassette B1. (TTL; 10/20/2016) INITIAL CPT CODE(S): A; 86392 B; 63977, 10948, 88925, 99464, 90164, 64884 Professional services performed by [facility] at [facility] [address] [place] [id number] Technical services performed by [facility] at [address] [place] [address], [address], [place] [address]. SPECIMEN(S) RECEIVED: A.Gallbladder and contents B.Liver, needle biopsy CLINICAL HISTORY: Pancreatitis, abnormal LFT's PATIENT: JARVISDILEEP /AGE: 1105/24/1955 (Age: 61) PATIENT #: [id number] ALT CASE #: SPECIMEN COLLECTION DATE: 10/20/2016 SPECIMEN RECEIVED DATE: 10/20/2016 [facility] - [id number] [place] [address] - PHONE: [phone] * * * END OF REPORT * * *
== END 2016-10-20 12:24 | disposition home or self-care (01) ==
LOC: SURG 06:51
PROVIDERS: ATTEND Surgery
DX: K80.12 Calculus of gallbladder with acute and chronic cholecystitis without obstruction (principal); E11.9 Type 2 diabetes mellitus without complications; K21.9 Gastro-esophageal reflux disease without esophagitis; I10 Essential (primary) hypertension; D64.9 Anemia, unspecified; F17.200 Nicotine dependence, unspecified, uncomplicated; Z72.89 Other problems related to lifestyle; Z87.39 Personal history of other diseases of the musculoskeletal system and connective tissue
CPT/HCPCS: 47563; 74300; C1782; J0131; J0690; J0780; J1100; J2270; J2405; J2704; J2710; J3010; J3490; J7030; Q9967

== ENCOUNTER → 2016-10-26 | Day surgery (SDC) | payer OTHER, MEDICARE ==
[~2016-10-26] MED LIST changes: +CYAN500T PO; +FENTANYL PF 100 MCG/2 ML VIAL. IV PRN; +HYDROMORPHONE 2 MG/ML VIAL. IV PRN; +IV RINGERS,LACTATED 1000ML 1,000 ML IV SCH; +LACT1CAP6 PO; +LIDOCAINE 1% 1 ML SYRINGE. ID PRN; +LIDOCAINE 2% PF Vial for OR 5 ML VIAL. ONE; +MORPHINE SULFATE 2 MG/ML DISP.SYRIN. IV PRN; +ONDANSETRON PF 4 MG/2 ML VIAL. IV PRN; +PROCHLORPERAZINE 10 MG/2 ML VIAL. IV PRN; +PROPOFOL 40 ML IV ONE
--- NOTE | 2016-10-26 09:31 | HP ---
ADMIT DATE: 10/26/2016 REASON FOR CONSULTATION: Colonoscopy, has history of colon polyps and CRC screening. HISTORY OF PRESENT ILLNESS: A 61-year-old -Cub[place] male whose past medical history is significant for hypertension, reflux, diabetes, status post recent cholecystectomy and history of colonic polyps, seen for interval colonoscopy. Bowel habits have been improved recently since his cholecystectomy. There has been no melena and no hematochezia. Today, has some loose stools. Also has a history of alcoholic pancreatitis today for surveillance exam. PAST MEDICAL HISTORY: Hypertension, reflux, diabetes, history of colonic polyps, history of alcoholic pancreatitis. ALLERGIES: CELEBREX. MEDICATIONS: Presently include vitamin B12, lactobacillus acidophilus, multivitamins, omega 3 and omeprazole 40 mg daily. SOCIAL HISTORY: He is a smoker, nondrinker. FAMILY HISTORY: Significant for prostate cancer with his father. REVIEW OF SYSTEMS: Per records. PHYSICAL EXAMINATION: GENERAL: Reveals a well-nourished, well-developed -Cuban male. VITAL SIGNS: Temperature is 98.2, pulse 73, respirations 20. HEENT: Normocephalic and atraumatic head. Pupils and extraocular muscles not tested. Sclerae anicteric. NECK: Supple. LUNGS: Clear. CARDIOVASCULAR: Reveals S1, S2 without S3, S4 or appreciable murmur. ABDOMEN: Reveals a soft abdomen, normal bowel sounds, without appreciable hepatosplenomegaly with a T-tube drain still in place. EXTREMITIES: Reveals no cyanosis, clubbing or edema. IMPRESSION: History of colonic polyps. Surveillance exam was recommended at this time. Risks, benefits of procedure including risk of perforation during the operation have been discussed. The patient is willing to proceed. I would like to thank Dr. Hermes Abel for allowing us to consult and participate in the patient's care. GERRY SPENCER MD DR: FERNY/christy JOB#: [id number] / [id number]
--- NOTE | 2016-10-27 15:38 | PATHOLOGY ---
PATHOLOGY REPORT * * * * * * * * FINAL DIAGNOSIS: Colon biopsy, sigmoid polyp: - Hyperplastic polyp. COMMENT: There are no adenomatous changes or evidence of malignancy. (JPM:; d/t: 10/27/16) REPORT ELECTRONICALLY SIGNED BY: Gigi Aiken M.D. DATE/TIME: 10/27/2016 15:35 * * * * * * * * GROSS PATHOLOGY: Received in formalin labeled "Dileep Jarvis and sigmoid polyp bx," is a segment of alba soft tissue measuring 0.4 cm in maximum dimension. The specimen is submitted entirely in cassette A1. (TTL; 10/26/2016) INITIAL CPT CODE(S): A; 85201 Professional services performed by [facility] [place] [address] Technical services performed by [facility] by [facility] at [address] [place] [address], [facility] [address] [address]. SPECIMEN(S) RECEIVED: A.Sigmoid polyp biopsy CLINICAL HISTORY: Diarrhea PATIENT: DILEEP JARVIS /AGE: 1105/24/1955 (Age: 61) PATIENT #: [id number] ALT CASE #: SPECIMEN COLLECTION DATE: 10/26/2016 SPECIMEN RECEIVED DATE: 10/26/2016 [facility] - [address] [place] [address] - PHONE: [phone] * * * END OF REPORT * * *
== END | disposition home or self-care (01) ==
LOC: ENDOS 06:29
PROVIDERS: ATTEND Internal Medicine Gastroenterology
DX: K64.0 First degree hemorrhoids (principal); D12.5 Benign neoplasm of sigmoid colon; K57.30 Diverticulosis of large intestine without perforation or abscess without bleeding; I10 Essential (primary) hypertension; K21.9 Gastro-esophageal reflux disease without esophagitis; E11.9 Type 2 diabetes mellitus without complications; F17.210 Nicotine dependence, cigarettes, uncomplicated; D64.9 Anemia, unspecified; Z72.89 Other problems related to lifestyle; Z90.49 Acquired absence of other specified parts of digestive tract
CPT/HCPCS: 45380; 88305; G0500; J2704

== ENCOUNTER → 2016-12-05 | Outpatient (CLI) | payer MEDICARE, OTHER ==
[~2016-12-05] MED LIST changes: -FENTANYL PF 100 MCG/2 ML VIAL. IV PRN; +GADOBUTROL 10 MMOL/10 ML VIAL IV ONE; -HYDROMORPHONE 2 MG/ML VIAL. IV PRN; -IV RINGERS,LACTATED 1000ML 1,000 ML IV SCH; -LIDOCAINE 1% 1 ML SYRINGE. ID PRN; -LIDOCAINE 2% PF Vial for OR 5 ML VIAL. ONE; -MORPHINE SULFATE 2 MG/ML DISP.SYRIN. IV PRN; -ONDANSETRON PF 4 MG/2 ML VIAL. IV PRN; -PROCHLORPERAZINE 10 MG/2 ML VIAL. IV PRN; -PROPOFOL 40 ML IV ONE
--- NOTE | 2016-12-05 12:33 | RAD ---
MR of the liver with and without gadolinium, 12/05/2016: History: Abdominal pain, follow-up liver mass Imaging was performed in axial and coronal planes utilizing a variety of imaging sequences including T2 weighted, fat-suppressed T2-weighted and opposed phase gradient echo sequences. Dynamic fat-suppressed T1-weighted images were also obtained following IV administration of 9 cc of the Gadavist contrast agent. Comparison is made to a study from 09/07/2016. There has been an interval cholecystectomy. The liver has decreased in size. It currently measures 19.3 cm in craniocaudad extent at the level of the right lobe compared to a measurement of 24.9 on the previous exam. Extensive fatty infiltration present on the previous study is no longer evident. The bile ducts are not dilated. The previous study demonstrated an irregular area of abnormal signal and enhancement in the central aspect of the right lobe of the liver measuring approximately 4.9 cm in greatest dimension on the axial images. It persists, although it appears to be slightly smaller, measuring 4.2 cm on the current exam. No new hepatic abnormality is seen. IMPRESSION: 1. Hepatomegaly has improved since 09/07/2016 with resolution of the severe fatty infiltration. 2. Interval cholecystectomy. 3. The previously seen lesion in the right lobe liver has decreased slightly in size, suggesting a benign etiology. Further imaging follow-up is suggested for confirmation.
== END | disposition home or self-care (01) ==
LOC: MRI 09:40
PROVIDERS: ATTEND Internal Medicine Gastroenterology
DX: K76.89 Other specified diseases of liver (principal); R16.0 Hepatomegaly, not elsewhere classified
CPT/HCPCS: 74183; A9585

== ENCOUNTER → 2016-12-15 | Outpatient (CLI) | payer OTHER ==
[~2016-12-15] MED LIST changes: -GADOBUTROL 10 MMOL/10 ML VIAL IV ONE
--- NOTE | 2016-12-15 11:36 | RAD ---
EXAM: Cervical spine MRI without contrast. HISTORY: Left upper extremity radiculopathy. TECHNIQUE: Multiplanar, multisequence magnetic resonance imaging of the cervical spine was performed without contrast. COMPARISON: None. FINDINGS: There is instrumented anterior spinal fusion and interbody fusion at C3-C4 and C6-C7. There is minimal retrolisthesis of C5 on C6. There is heterogeneous marrow signal intensity due to fatty marrow replacement. No suspicious osseous lesion is seen. There is no acute or subacute fracture. There is a 5 mm focus of T2 hyperintensity within the cervical spinal cord at the level of C3-C4, the appearance of which favors focal myelomalacia. No additional spinal cord lesion is seen. There is deformation of the spinal cord at multiple levels due to central canal stenosis, described in detail below. There is suspected congenital narrowing of the cervical canal primarily at the mid and lower cervical levels. At C2-C3, there is mild bilateral facet arthropathy. There is minimal left foraminal stenosis. At C3-C4, there is instrumented fusion. There is diffuse endplate remodeling. There is mild facet arthropathy. There is uncovertebral arthropathy. There is moderate to severe bilateral foraminal stenosis. There is deformation of the spinal cord with moderate central canal stenosis measuring 7.4 mm in anterior posterior dimension. There is suspected mild malacia within the cord at this level. At C4-C5, there is a disc bulge and endplate remodeling. There is mild right and moderate left facet arthropathy. There is uncovertebral arthropathy. There is thickening of the ligamentum flavum. There is moderate left greater than right foraminal stenosis. There is deformation of the spinal cord with severe central canal stenosis measuring 5.5 mm in anterior posterior dimension. At C5-C6, there is a disc bulge and endplate remodeling. There is moderate facet arthropathy. There is uncovertebral arthropathy. There is thickening of the ligamentum flavum. There is moderate bilateral foraminal stenosis. There is moderate central canal stenosis measuring 7.2 mm in anterior posterior dimension. At C6-C7, there is instrumented fusion. There is diffuse endplate osteophytosis. There is also broad-based left posterior paracentral bony bridging. There is mild facet arthropathy. There is uncovertebral arthropathy. There is moderate bilateral foraminal stenosis. There is deformation of the left ventral aspect of the spinal cord with moderate central canal stenosis measuring 7.3 mm in anterior posterior dimension. At C7-T1, there is a broad-based left paracentral to foraminal disc protrusion superimposed on a disc bulge and endplate osteophytosis. There is mild facet arthropathy. There is uncovertebral arthropathy. There is moderate to severe bilateral foraminal stenosis. There is deformation of the ventral aspect of the spinal cord with mild central canal stenosis measuring 8.6 mm in anteroposterior dimension. IMPRESSION: 1. Multilevel degenerative changes of the cervical spine, resulting in significant foraminal and central canal stenosis as before mentioned levels. The central canal stenosis is most significant at C4-C5. There is focal signal change within the spinal cord at C3-C4 likely due to chronic myelomalacia. 2. Instrumented fusion at C3-C4 and C6-C7. Electronically signed by: Jennifer Liriano MD (12/15/2016 11:32 AM)
== END | disposition home or self-care (01) ==
LOC: MRI 10:07
PROVIDERS: ATTEND Physical Medicine & Rehabilitation
DX: M48.02 Spinal stenosis, cervical region (principal)
CPT/HCPCS: 72141

== ENCOUNTER → 2017-01-30 | Outpatient (CLI) | payer OTHER ==
[~2017-01-30] MED LIST changes: +CA C1TAB62 PO; +HYDR12.58 PO; +INSU100V13 SQ; +LINA5TAB4 PO; +UBID30CA9 PO
[2017-01-30 15:27] LABS: BASO % 1 % (0-3); EOS % 2 % (0-3); HEMATOCRIT 42.2 % (39.0-53.0); HEMOGLOBIN 13.7 g/dL (13.0-17.5); LYMPH # 2.5 x10^3/uL (1.0-4.8); LYMPH % 46 % (24-48); MEAN CORPUSCULAR HEMOGLOBIN 28 pg (25-35); MEAN CORPUSCULAR HGB CONC 33 g/dL (31-37); MEAN CORPUSCULAR VOLUME 86 fL (79-100); MONO % 11 % (0-9); NEUT % 41 % (31-73); PLATELET COUNT 210 x10^3/uL (140-400); RED BLOOD COUNT 4.93 x10^6/uL (4.30-5.70); RED CELL DISTRIBUTION WIDTH 12.9 % (11.5-14.5); WHITE BLOOD COUNT 5.5 x10^3/uL (4.0-11.0)
[2017-01-30 15:37] LABS: PROTHROMBIN TIME PATIENT 12.3 SEC (11.7-14.0)
[2017-01-30 16:05] LABS: ALBUMIN 3.5 g/dL (3.4-5.0); ALBUMIN/GLOBULIN RATIO 0.8 (1.0-1.7); CALCIUM 9.1 mg/dL (8.5-10.1); CREATININE 1.1 mg/dL (0.7-1.3); GFR 82.9; POTASSIUM 4.1 mmol/L (3.5-5.1); TOTAL BILIRUBIN 0.2 mg/dL (0.2-1.0); TOTAL PROTEIN 7.8 g/dL (6.4-8.2)
== END | disposition home or self-care (01) ==
LOC: SURGPAT 13:28
PROVIDERS: ATTEND Neurological Surgery
DX: M48.02 Spinal stenosis, cervical region (principal); M50.00 Cervical disc disorder with myelopathy, unspecified cervical region
CPT/HCPCS: 36415; 80053; 83036; 85027; 85610; 85730; 87641

== ENCOUNTER 2017-03-17 23:24 | Observation (INO) | payer OTHER ==
[~2017-03-17] VITALS: Ht 190.5 cm; Wt 96.2 kg
[~2017-03-17 23:24] MED LIST changes: +CYCL10TA2 PO; +DOCU-109 PO; +OXYC1TAB9 PO
[2017-03-18] VITALS (7 sets, daily range): BP systolic 128–170; BP diastolic 59–91
[2017-03-18] MEDS ORDERED: HYDROcodone/APAP 5/325MG 1 TAB TABLET PO ONE
[2017-03-18] MEDS ORDERED: ONDANSETRON PF 4 MG/2 ML VIAL. IV PRN ×2 (00:45→01:00)
[2017-03-18] MEDS ORDERED: oxyCODONE/APAP 5/325 1 TAB TABLET PO PRN ×2 (00:45→01:00)
--- NOTE | 2017-03-18 00:56 | PHYS DOC ---
Past Medical History Past Medical History: Diabetes-Type II, GERD, Hypertension Past Surgical History: Other Additional Past Surgical Histo: bilat toe surgery, knee surgery, mult shouler surgeries, neck surgery Alcohol Use: None Drug Use: None Adult General Chief Complaint Chief Complaint: Neck Pain HPI HPI Patient is a 61 year old [place] female who underwent cervical spine surgery 5 days ago who is discharged from the hospital this evening to outpatient rehabilitation who presents for request for readmission to the hospital. Apparently, the patient did not like the facility where he is discharged to. He states he was unsatisfied with the quality and level of care he was receiving. Patient contacted 911 and requested that he be brought to the emergency department. The patient denies acute injury, or change of condition from discharge from the hospital several hours ago. Patient did states he missed his evening pain medication. Patient's neurosurgeon is Dr. Verma. Review of Systems Review of Systems ROS as per HPI. Allergies Allergies Allergies Coded Allergies Type Severity Reaction Last Updated Verified celecoxib Allergy Intermediate RASH, takes Ibuprofen at home 03/13/17 Yes Physical Exam Physical Exam Constitutional: Well developed, well nourished, no acute distress, non-toxic appearance. [] HENT: Normocephalic, atraumatic, bilateral external ears normal, oropharynx moist. [] Eyes: PERRLA, EOMI, conjunctiva normal, no discharge. [] Neck: Cervical soft collar in place. [] Cardiovascular: Regular rate and rhythm.[] Lungs & Thorax: Respirations nonlabored, lung sounds clear[] Abdomen: Bowel sounds normal, soft, no tenderness, no masses, no pulsatile masses. [] Neurologic: Alert and oriented X 3, normal motor function, normal sensory function, no focal deficits noted. [] Psychologic: Affect normal, judgement normal, mood normal. [] EKG EKG [] Radiology/Procedures Radiology/Procedures [] Course & Med Decision Making Course & Med Decision Making Pertinent Labs and Imaging studies reviewed. (See chart for details) [Dr. Abel agrees to admit patient. Pain medication given the ED.] Dragon Disclaimer Dragon Disclaimer This electronic medical record was generated, in whole or in part, using a voice recognition dictation system. Departure Departure Impression: Primary Impression: Neck pain Disposition: ADMITTED INPATIENT Admitting Physician: Hermes Abel Condition: STABLE Referrals: HERMES ABEL MD (PCP) GAY SUAREZ 2, 2017 00:56
[2017-03-18] MEDS ORDERED: METH-38 PO (01:55)
[2017-03-18] MEDS ORDERED: CEPH-264 PO (01:55)
[2017-03-18] MEDS: oxyCODONE/APAP 5/325 1 TAB TABLET PO PRN ×3 (04:17→20:08)
--- NOTE | 2017-03-18 12:13 | PDOC ---
PROGRESS NOTES Subjective Subjective Returned to hospital last night bc of increased pain and dissatisfied with SNF care currently neck pain better controlled Objective Objective Vital Signs Date Time Temp Pulse Resp B/P (MAP) Pulse Ox O2 Delivery O2 Flow Rate FiO2 03/18/17 11:00 99.0 95 18 170/85 (113) 98 Room Air 99.0 Physical Exam General: Alert, Oriented X3, Cooperative MUSCULOSKELETAL: Other (KYLE) Neuro: Normal speech Skin: Other (dressing changed, shereen intact) Plan Plan of Care encouraged increased activity as tolerated Continue PT and pain medication Comment Review of Relevant I have reviewed the following items carie (where applicable) has been applied. Labs Laboratory Tests Test 03/18/17 07:26 03/18/17 11:33 Glucose (Fingerstick) 139 mg/dL (70-99) 119 mg/dL (70-99) Laboratory Tests Test 03/18/17 07:26 03/18/17 11:33 Glucose (Fingerstick) 139 mg/dL (70-99) 119 mg/dL (70-99) Medications Current Medications Acetaminophen/ Hydrocodone Bitart (Lortab 5/325) 1 tab 1X ONCE PO Last administered on 03/17/17 23:55; Start 03/18/17 at 00:00; Stop 03/18/17 at 00:01; Status DC Ondansetron HCl (Zofran) 4 mg PRN Q8HRS PRN IV NAUSEA/VOMITING; Start 03/18/17 at 00:45; Stop 03/18/17 at 00:45; Status DC Oxycodone/ Acetaminophen (Percocet 5/325) 1 tab Q4HRS PRN PO pain; Start at 00:45; Stop 03/18/17 at 00:45; Status DC Oxycodone/ Acetaminophen (Percocet 5/325) 1 tab PRN Q4HRS PRN PO SEVERE PAIN; Start 03/18/17 at 01:00; Status Cancel Ondansetron HCl (Zofran) 4 mg PRN Q8HRS PRN IV NAUSEA/VOMITING; Start 03/18/17 at 01:00; Stop 03/19/17 at 00:44 Oxycodone/ Acetaminophen (Percocet 5/325) 1 tab PRN Q4HRS PRN PO SEVERE PAIN Last administered on 9/2/17at 04:17; Start 03/18/17 at 01:00 Active Scripts Active Cyclobenzaprine Hcl 10 Mg Tablet 10 Mg PO PRN Q8HRS PRN Oxycodone-Acetaminophen 10-325 (Oxycodone Hcl/Acetaminophen) 1 Each Tablet 1 Tab PO PRN Q2HRS PRN Colace (Docusate Sodium) 100 Mg Capsule 100 Mg PO BID Reported Robaxin-750 (Methocarbamol) 750 Mg Tablet 1 Tab PO TID Keflex (Cephalexin) 500 Mg Capsule 1 Cap PO TID Hydrochlorothiazide Tablet (Hydrochlorothiazide) 12.5 Mg Tablet 12.5 Mg PO DAILY LAST DOSE GIVEN: DATE:03/17/17 TIME:9:00 a.m. Citracal Soft Chew (Ca Carbonate/Vitamin D3/Vit K) 1 Each Tab.chew 1 Each PO DAILY LAST DOSE GIVEN: DATE:03/17/17 TIME:9:00 a.m. Coq-10 (Ubidecarenone) 30 Mg Capsule 30 Mg PO DAILY LAST DOSE GIVEN: DATE:03/17/17 TIME:9:00 a.m. Tradjenta (Linagliptin) 5 Mg Tablet 5 Mg PO DAILYBFRSUP LAST DOSE GIVEN: DATE:03/17/17 TIME:9:00 a.m. Levemir (Insulin Detemir) 100 Unit/1 Ml Vial 100 Unit SQ HS LAST DOSE GIVEN: DATE:03/16/17 TIME:9:00 p.m. One Daily Men's Health Tablet (Multivits-Minerals/Fa/Lycopene) 1 Each Tablet 1 Each PO DAILY LAST DOSE GIVEN: DATE:03/17/17 TIME:9:00 a.m. Omeprazole 40 Mg Capsule. 1 Cap PO DAILY LAST DOSE GIVEN: DATE:03/17/17 TIME:9:00 a.m. Vitals/I & O Vital Sign - Last 24 Hours 03/17/17 03/17/17 03/18/17 03/18/17 23:53 23:55 00:56 01:28 Temp 99.3 99.0 99.0 99.3 99.0 99.0 Pulse 108 105 105 Resp 16 16 20 20 B/P (MAP) 176/83 (114) 159/91 (113) Pulse Ox 96 96 97 99 O2 Delivery Room Air Room Air Room Air 903/18/17 03/18/17 03/18/17 02:00 04:17 07:00 11:00 Temp 99.0 99.1 99.0 99.0 99.1 99.0 Pulse 105 95 95 Resp 18 18 18 B/P (MAP) 159/91 (113) 143/72 (95) 170/85 (113) Pulse Ox 99 99 92 98 O2 Delivery Room Air Room Air Room Air DEB CASIANO MD Mar 18, 2017 12:13
[2017-03-18] MEDS ORDERED: oxyCODONE/APAP 10/325 1 TAB TABLET PO PRN (15:30)
[2017-03-18] MEDS: METHOCARBAMOL 750 MG TABLET PO SCH ×2 (15:35→20:08)
--- NOTE | 2017-03-18 16:14 | PDOC ---
Provider Note Provider Note [id number] ANIKET RONQUILLO MD Mar 18, 2017 16:14
--- NOTE | 2017-03-18 16:24 | HP ---
ADMIT DATE: 03/17/2017 CHIEF COMPLAINT: Neck pain. HISTORY OF PRESENT ILLNESS: The patient was discharged about 12 hours ago after a 3 to 4-day stay with cervical stenosis and surgery. He was sent to [place], but did not like the facility there, called the ambulance and came back to the ER for admission. Nothing medically has occurred since that time. PAST MEDICAL HISTORY: Well documented in the old record. ALLERGIES: No allergies. MEDICATIONS: He is on Levemir with good control. SOCIAL HISTORY: Single, retired, nonsmoker, nondrinker. FAMILY HISTORY: Unremarkable. REVIEW OF SYSTEMS: No other complaints. OBJECTIVE: ENT: All within normal limits. NECK: Large dressing in place and cervical collar. LUNGS: Clear. CARDIOVASCULAR: Regular rate. No irregular beat or murmur. ABDOMEN: Benign and nontender. EXTREMITIES: Good pedal and radial pulses. NEUROLOGIC: Physiologic and nonfocal. ASSESSMENT: 1. Status post cervical spine surgery with secondary pain and self-care deficits. 2. Insulin-dependent diabetes mellitus type 2, well controlled. 3. History of alcohol-induced cirrhosis, currently stable. PLAN: Supportive care. ANIKET RONQUILLO MD DR: KEYUR/christy JOB#: [id number] / [id number]
--- NOTE | 2017-03-18 16:32 | PDOC ---
Provider Note Provider Note nurses will ask dr casillas re use of keflex or not, rest of meds set, pt has no specific questions ANIKET RONQUILLO MD Mar 18, 2017 16:32
[2017-03-18] MEDS: LINAGLIPTIN 5 MG TABLET PO SCH (17:02)
[2017-03-18] MEDS: DOCUSATE SODIUM 100 MG CAPSULE. PO SCH (20:08)
[2017-03-18] MEDS ORDERED: INSULIN DETEMIR 300 UNITS/3 ML INSULN.PEN. SQ SCH (21:00)
[2017-03-19 03:59] VITALS: BP 129/61
[2017-03-19] MEDS: oxyCODONE/APAP 5/325 1 TAB TABLET PO PRN ×5 (04:20→20:21)
[2017-03-19] MEDS: PANTOPRAZOLE 40 MG TABLET.DR. PO SCH (06:11)
[2017-03-19 07:00] VITALS: BP 179/71
--- NOTE | 2017-03-19 07:37 | PDOC ---
PROGRESS NOTES Subjective Subjective resting in bed neck/ incisional pain, helped with medication has been ambulating in room Objective Objective Vital Signs Date Time Temp Pulse Resp B/P (MAP) Pulse Ox O2 Delivery O2 Flow Rate FiO2 03/19/17 05:20 16 Room Air 03/19/17 03:59 99.5 93 129/61 (83) 97 99.5 Physical Exam General: Alert, Oriented X3, Cooperative MUSCULOSKELETAL: Other (KYLE) Skin: Other (dressing changed, shereen intact, dry) Plan Plan of Care encouraged increased activity as tolerated PT Pain medication may dc Keflex Comment Review of Relevant I have reviewed the following items carie (where applicable) has been applied. Labs Laboratory Tests Test 03/18/17 07:26 03/18/17 11:33 03/18/17 16:19 03/18/17 20:41 Glucose (Fingerstick) 139 mg/dL (70-99) 119 mg/dL (70-99) 175 mg/dL (70-99) 153 mg/dL (70-99) Laboratory Tests Test 03/18/17 11:33 03/18/17 16:19 03/18/17 20:41 Glucose (Fingerstick) 119 mg/dL (70-99) 175 mg/dL (70-99) 153 mg/dL (70-99) Medications Current Medications Acetaminophen/ Hydrocodone Bitart (Lortab 5/325) 1 tab 1X ONCE PO Last administered on 03/17/17t 23:55; Start 03/18/17 at 00:00; Stop 03/18/17 at 00:01; Status DC Ondansetron HCl (Zofran) 4 mg PRN Q8HRS PRN IV NAUSEA/VOMITING; Start 03/18/17 at 00:45; Stop 03/18/17 at 00:45; Status DC Oxycodone/ Acetaminophen (Percocet 5/325) 1 tab Q4HRS PRN PO pain; Start at 00:45; Stop 03/18/17 at 00:45; Status DC Oxycodone/ Acetaminophen (Percocet 5/325) 1 tab PRN Q4HRS PRN PO SEVERE PAIN; Start 03/18/17 at 01:00; Status Cancel Ondansetron HCl (Zofran) 4 mg PRN Q8HRS PRN IV NAUSEA/VOMITING; Start 03/18/17 at 01:00; Stop 03/19/17 at 00:44; Status DC Oxycodone/ Acetaminophen (Percocet 5/325) 1 tab PRN Q4HRS PRN PO SEVERE PAIN Last administered on 03/19/17 04:20; Start 03/18/17 at 01:00 Cyclobenzaprine HCl (Flexeril) 10 mg PRN Q8HRS PRN PO MUSCLE SPASMS; Start 03/18 at 15:30 Docusate Sodium (Colace) 100 mg BID PO Last administered on 03/18/17 20:08; Start 03/18/17 at 21:00 Linagliptin (Tradjenta) 5 mg DAILYBFRSUP PO Last administered on 03/18/17 17:02 ; Start 03/18/17 at 17:00 Methocarbamol (Robaxin) 750 mg TID PO Last administered on 03/18/17 20:08; Start 03/18/17 at 15:30 Oxycodone/ Acetaminophen (Percocet 10/325) 1 tab PRN Q2HRS PRN PO pain; Start 03/18/17 at 15:30; Stop 03/18/17 at 16:13; Status DC Calcium/Vitamin D (Oscal D 500mg/ 200uts) 1 tab DAILY PO ; Start 03/19/17 at 09: 00 Hydrochlorothiazide (Microzide) 12.5 mg DAILY PO ; Start 03/19/17 at 09:00 Insulin Detemir (Levemir) 80 units QHS SQ Last administered on 03/18/17 21:38; Start 03/18/17 at 21:00 Multivitamins (Thera M Plus) 1 tab DAILY PO ; Start 03/19/17 at 09:00 Pantoprazole Sodium (Protonix) 40 mg DAILYAC PO Last administered on 03/19/17 06:11; Start 03/19/17 at 07:30 Non-Formulary Medication 30 mg DAILY PO ; Start 03/19/17 at 09:00; Stop 03/19/17 at 09:00; Status DC Oxycodone/ Acetaminophen (Percocet 10/325) 1 tab PRN Q4HRS PRN PO pain; Start 03/18/17 at 16:15 Active Scripts Active Cyclobenzaprine Hcl 10 Mg Tablet 10 Mg PO PRN Q8HRS PRN Oxycodone-Acetaminophen 10-325 (Oxycodone Hcl/Acetaminophen) 1 Each Tablet 1 Tab PO PRN Q2HRS PRN Colace (Docusate Sodium) 100 Mg Capsule 100 Mg PO BID Reported Robaxin-750 (Methocarbamol) 750 Mg Tablet 1 Tab PO TID Keflex (Cephalexin) 500 Mg Capsule 1 Cap PO TID Hydrochlorothiazide Tablet (Hydrochlorothiazide) 12.5 Mg Tablet 12.5 Mg PO DAILY LAST DOSE GIVEN: DATE:03/17/17 TIME:9:00 a.m. Citracal Soft Chew (Ca Carbonate/Vitamin D3/Vit K) 1 Each Tab.chew 1 Each PO DAILY LAST DOSE GIVEN: DATE:03/17/17 TIME:9:00 a.m. Coq-10 (Ubidecarenone) 30 Mg Capsule 30 Mg PO DAILY LAST DOSE GIVEN: DATE:03/17/17 TIME:9:00 a.m. Tradjenta (Linagliptin) 5 Mg Tablet 5 Mg PO DAILYBFRSUP LAST DOSE GIVEN: DATE:03/17/17 TIME:9:00 a.m. Levemir (Insulin Detemir) 100 Unit/1 Ml Vial 100 Unit SQ HS LAST DOSE GIVEN: DATE:03/16/17 TIME:9:00 p.m. One Daily Men's Health Tablet (Multivits-Minerals/Fa/Lycopene) 1 Each Tablet 1 Each PO DAILY LAST DOSE GIVEN: DATE:03/17/17 TIME:9:00 a.m. Omeprazole 40 Mg Capsule. 1 Cap PO DAILY LAST DOSE GIVEN: DATE:03/17/17 TIME:9:00 a.m. Vitals/I & O Vital Sign - Last 24 Hours 03/18/17 03/18/17 03/18/17 03/18/17 11:00 15:00 19:59 20:00 Temp 99.0 99.5 100.2 99.0 99.5 100.2 Pulse 95 87 89 Resp 18 18 18 B/P (MAP) 170/85 (113) 131/59 (83) 144/72 (96) Pulse Ox 98 93 97 O2 Delivery Room Air Room Air Room Air Room Air 03/18/17 03/18/17 03/19/17 03/19/17 20:08 23:25 03:59 04:20 Temp 97.7 99.5 97.7 99.5 Pulse 85 93 Resp 16 20 20 16 B/P (MAP) 128/65 (86) 129/61 (83) Pulse Ox 98 97 O2 Delivery Room Air Room Air Room Air Room Air 03/19/17 05:20 Resp 16 O2 Delivery Room Air ARJUN WALL APRN Mar 19, 2017 07:37
[2017-03-19] MEDS: hydroCHLOROthiazide 12.5 MG CAPSULE PO SCH (08:18)
[2017-03-19] MEDS: CYCLOBENZAPRINE 10 MG TABLET. PO PRN ×2 (08:18→16:27)
[2017-03-19] MEDS: MULTIVITAMIN with MINERAL TABLET. PO SCH (08:18)
[2017-03-19] MEDS: CALCIUM CARB/VIT D3 500/200 TABLET. PO SCH (08:18)
[2017-03-19] MEDS: METHOCARBAMOL 750 MG TABLET PO SCH ×3 (08:19→20:21)
[2017-03-19] MEDS: DOCUSATE SODIUM 100 MG CAPSULE. PO SCH ×2 (08:19→20:21)
[2017-03-19] MEDS ORDERED: NON FORMULARY ITEM (Ubidecarenone (Coq-10) 30 MG) PO SCH (09:00)
[2017-03-19 11:00] VITALS: BP 132/70
--- NOTE | 2017-03-19 12:36 | PDOC ---
Provider Note Provider Note no change, vss, glucose good- will reduce levemir 10 u to lessen hypo risk ANIKET RONQUILLO MD Mar 19, 2017 12:36
[2017-03-19] MEDS ORDERED: CEPHALEXIN 250 MG CAPSULE. PO SCH (14:00)
[2017-03-19 15:00] VITALS: BP 136/80
[2017-03-19] MEDS: LINAGLIPTIN 5 MG TABLET PO SCH (16:27)
[2017-03-19 19:00] VITALS: BP 131/74
[2017-03-19] MEDS: INSULIN DETEMIR 300 UNITS/3 ML INSULN.PEN. SQ SCH (20:40)
[2017-03-19 23:00] VITALS: BP 123/66
[2017-03-20] MEDS: oxyCODONE/APAP 5/325 1 TAB TABLET PO PRN ×4 (02:45→18:02)
[2017-03-20 03:10] VITALS: BP 133/74
[2017-03-20] MEDS: CYCLOBENZAPRINE 10 MG TABLET. PO PRN ×2 (05:31→12:35)
[2017-03-20] MEDS: PANTOPRAZOLE 40 MG TABLET.DR. PO SCH (06:38)
[2017-03-20 07:00] VITALS: BP 135/75
[2017-03-20] MEDS: MULTIVITAMIN with MINERAL TABLET. PO SCH (08:05)
[2017-03-20] MEDS: hydroCHLOROthiazide 12.5 MG CAPSULE PO SCH (08:05)
[2017-03-20] MEDS: CALCIUM CARB/VIT D3 500/200 TABLET. PO SCH (08:05)
[2017-03-20] MEDS: DOCUSATE SODIUM 100 MG CAPSULE. PO SCH ×2 (08:05→21:43)
[2017-03-20] MEDS: METHOCARBAMOL 750 MG TABLET PO SCH ×3 (08:05→21:43)
--- NOTE | 2017-03-20 09:30 | PDOC ---
Provider Note Provider Note no new probs, glucose better on less levemir- cont same ANIKET RONQUILLO MD Mar 20, 2017 09:29
[2017-03-20 11:00] VITALS: BP 110/65
--- NOTE | 2017-03-20 11:28 | PDOC ---
PROGRESS NOTES Subjective Subjective resting in bed some numbness in left hand neck pain, helped with medication Objective Objective Vital Signs Date Time Temp Pulse Resp B/P (MAP) Pulse Ox O2 Delivery O2 Flow Rate FiO2 03/20/17 08:06 Room Air 03/20/17 07:00 99.1 81 18 135/75 (95) 98 99.1 Physical Exam General: Alert, Oriented X3, Cooperative MUSCULOSKELETAL: Other (KYLE) Neuro: Normal speech Skin: Other (dressing dry and intact, changed, stapels intact) Plan Plan of Care SCDs Encouraged increased activity as tolerated likely dc home tomorrow Comment Review of Relevant I have reviewed the following items carei (where applicable) has been applied. Labs Laboratory Tests Test 03/18/17 11:33 03/18/17 16:19 03/18/17 20:41 03/19/17 07:57 Glucose (Fingerstick) 119 mg/dL (70-99) 175 mg/dL (70-99) 153 mg/dL (70-99) 71 mg/dL (70-99) Test 03/19/17 10:46 03/19/17 15:57 03/19/17 20:32 03/20/17 07:44 Glucose (Fingerstick) 110 mg/dL (70-99) 139 mg/dL (70-99) 176 mg/dL (70-99) 135 mg/dL (70-99) Test 03/20/17 11:08 Glucose (Fingerstick) 140 mg/dL (70-99) Laboratory Tests Test 03/19/17 15:57 03/19/17 20:32 03/20/17 07:44 03/20/17 11:08 Glucose (Fingerstick) 139 mg/dL (70-99) 176 mg/dL (70-99) 135 mg/dL (70-99) 140 mg/dL (70-99) Medications Current Medications Acetaminophen/ Hydrocodone Bitart (Lortab 5/325) 1 tab 1X ONCE PO Last administered on 03/17/17t 23:55; Start 03/18/17 at 00:00; Stop 03/18/17 at 00:01; Status DC Ondansetron HCl (Zofran) 4 mg PRN Q8HRS PRN IV NAUSEA/VOMITING; Start 03/18/17 at 00:45; Stop 03/18/17 at 00:45; Status DC Oxycodone/ Acetaminophen (Percocet 5/325) 1 tab Q4HRS PRN PO pain; Start at 00:45; Stop 03/18/17 at 00:45; Status DC Oxycodone/ Acetaminophen (Percocet 5/325) 1 tab PRN Q4HRS PRN PO SEVERE PAIN; Start 03/18/17 at 01:00; Status Cancel Ondansetron HCl (Zofran) 4 mg PRN Q8HRS PRN IV NAUSEA/VOMITING; Start 03/18/17 at 01:00; Stop 03/19/17 at 00:44; Status DC Oxycodone/ Acetaminophen (Percocet 5/325) 1 tab PRN Q4HRS PRN PO SEVERE PAIN Last administered on 03/20/17 06:38; Start 03/18/17 at 01:00 Cyclobenzaprine HCl (Flexeril) 10 mg PRN Q8HRS PRN PO MUSCLE SPASMS Last administered on 03/20/17 05:31; Start 03/18/17 at 15:30 Docusate Sodium (Colace) 100 mg BID PO Last administered on 03/20/17 08:05; Start 03/18/17 at 21:00 Linagliptin (Tradjenta) 5 mg DAILYBFRSUP PO Last administered on 03/19/17 16:27 ; Start 03/18/17 at 17:00 Methocarbamol (Robaxin) 750 mg TID PO Last administered on 03/20/17 08:05; Start 03/18/17 at 15:30 Oxycodone/ Acetaminophen (Percocet 10/325) 1 tab PRN Q2HRS PRN PO pain; Start 03/18/17 at 15:30; Stop 03/18/17 at 16:13; Status DC Calcium/Vitamin D (Oscal D 500mg/ 200uts) 1 tab DAILY PO Last administered on 08:05; Start 03/19/17 at 09:00 Hydrochlorothiazide (Microzide) 12.5 mg DAILY PO Last administered on 03/20/17 08:05; Start 03/19/17 at 09:00 Insulin Detemir (Levemir) 80 units QHS SQ Last administered on 03/18/17 21:38; Start 03/18/17 at 21:00; Stop 03/19/17 at 12:34; Status DC Multivitamins (Thera M Plus) 1 tab DAILY PO Last administered on 03/20/17 08:05 ; Start 03/19/17 at 09:00 Pantoprazole Sodium (Protonix) 40 mg DAILYAC PO Last administered on 03/20/17 06:38; Start 03/19/17 at 07:30 Non-Formulary Medication 30 mg DAILY PO ; Start 03/19/17 at 09:00; Stop 03/19/17 at 09:00; Status DC Oxycodone/ Acetaminophen (Percocet 10/325) 1 tab PRN Q4HRS PRN PO pain; Start 03/18/17 at 16:15 Insulin Detemir (Levemir) 70 units QHS SQ Last administered on 03/19/17 20:40; Start 03/19/17 at 21:00 Cephalexin HCl (Keflex) 500 mg TID PO ; Start 03/19/17 at 14:00; Stop 03/19/17 at 14:00; Status DC Active Scripts Active Cyclobenzaprine Hcl 10 Mg Tablet 10 Mg PO PRN Q8HRS PRN Oxycodone-Acetaminophen 10-325 (Oxycodone Hcl/Acetaminophen) 1 Each Tablet 1 Tab PO PRN Q2HRS PRN Colace (Docusate Sodium) 100 Mg Capsule 100 Mg PO BID Reported Robaxin-750 (Methocarbamol) 750 Mg Tablet 1 Tab PO TID Keflex (Cephalexin) 500 Mg Capsule 1 Cap PO TID Hydrochlorothiazide Tablet (Hydrochlorothiazide) 12.5 Mg Tablet 12.5 Mg PO DAILY LAST DOSE GIVEN: DATE:03/17/17 TIME:9:00 a.m. Citracal Soft Chew (Ca Carbonate/Vitamin D3/Vit K) 1 Each Tab.chew 1 Each PO DAILY LAST DOSE GIVEN: DATE:03/17/17 TIME:9:00 a.m. Coq-10 (Ubidecarenone) 30 Mg Capsule 30 Mg PO DAILY LAST DOSE GIVEN: DATE:03/17/17 TIME:9:00 a.m. Tradjenta (Linagliptin) 5 Mg Tablet 5 Mg PO DAILYBFRSUP LAST DOSE GIVEN: DATE:03/17/17 TIME:9:00 a.m. Levemir (Insulin Detemir) 100 Unit/1 Ml Vial 100 Unit SQ HS LAST DOSE GIVEN: DATE:03/16/17 TIME:9:00 p.m. One Daily Men's Health Tablet (Multivits-Minerals/Fa/Lycopene) 1 Each Tablet 1 Each PO DAILY LAST DOSE GIVEN: DATE:03/17/17 TIME:9:00 a.m. Omeprazole 40 Mg Capsule.dr 1 Cap PO DAILY LAST DOSE GIVEN: DATE:03/17/17 TIME:9:00 a.m. Vitals/I & O Vital Sign - Last 24 Hours 03/19/17 03/19/17 03/19/17 03/19/17 11:33 11:57 15:00 16:43 Temp 98.0 98.0 Pulse 90 Resp 18 B/P (MAP) 136/80 (98) Pulse Ox 97 98 O2 Delivery Room Air Room Air Room Air 03/19/17 03/19/17 03/19/17 03/19/17 19:00 20:00 20:21 23:00 Temp 98.8 98.1 98.8 98.1 Pulse 92 91 Resp 20 16 20 B/P (MAP) 131/74 (93) 123/66 (85) Pulse Ox 98 95 O2 Delivery Room Air Room Air Room Air Room Air 03/20/17 03/20/17 03/20/17 03/20/17 02:45 03:10 03:52 06:38 Temp 97.9 97.9 Pulse 94 Resp 16 20 16 16 B/P (MAP) 133/74 (93) Pulse Ox 95 O2 Delivery Room Air Room Air Room Air 03/20/17 03/20/17 07:00 08:06 Temp 99.1 99.1 Pulse 81 Resp 18 B/P (MAP) 135/75 (95) Pulse Ox 98 O2 Delivery Room Air Room Air ARJUN WALL APRN Mar 20, 2017 11:28
[2017-03-20 15:00] VITALS: BP 148/68
[2017-03-20] MEDS: oxyCODONE/APAP 10/325 1 TAB TABLET PO PRN ×2 (15:26→20:15)
[2017-03-20] MEDS: LINAGLIPTIN 5 MG TABLET PO SCH (18:02)
[2017-03-20 19:00] VITALS: BP 149/83
[2017-03-20] MEDS: INSULIN DETEMIR 300 UNITS/3 ML INSULN.PEN. SQ SCH (21:49)
[2017-03-20 23:00] VITALS: BP 139/57
[2017-03-21] MEDS: oxyCODONE/APAP 10/325 1 TAB TABLET PO PRN ×4 (01:01→13:00)
[2017-03-21] MEDS: CYCLOBENZAPRINE 10 MG TABLET. PO PRN (01:04)
[2017-03-21 03:00] VITALS: BP 136/73
[2017-03-21] MEDS: PANTOPRAZOLE 40 MG TABLET.DR. PO SCH (06:44)
[2017-03-21 08:10] VITALS: BP 136/69
--- NOTE | 2017-03-21 08:27 | DISCH ---
DISCHARGE INSTRUCTIONS Condition on Discharge Condition on Discharge: Stable Activity After Discharge Activity Instructions for Disc: No restrictions Diet after Discharge Diet after Discharge: Diabetic No Calorie Level Follow-Up Follow up with: ANIKET Ramirez MD Mar 21, 2017 08:27
--- NOTE | 2017-03-21 08:31 | PDOC ---
Provider Note Provider Note [id number] ANIKET RONQUILLO MD Mar 21, 2017 08:31
--- NOTE | 2017-03-21 08:48 | DS ---
DATE OF DISCHARGE: 03/21/2017 HOSPITAL SUMMARY: A 61-year-old black male status post cervical spine surgery, came back in because he was not satisfied with the outpatient arrangements. Blood sugars remained stable while in the hospital. No further laboratory studies were done ____ studies. He was treated with oral meds and ____ comfortable to be followed as an outpatient at this point. FINAL DIAGNOSIS: Self-care deficits. CONSULTATIONS: Dr. Thapa. OPERATIONS AND PROCEDURE: None. COMPLICTIONS: None. DISPOSITION: Continue home meds postoperatively per Dr. Thapa, including Levemir 70 units at bedtime per Dr. Abel and rest of meds same. Follow up with Dr. Abel in [address] Braswell in 1 week for staple removal. PROGNOSIS: Good. ANIKET ABEL MD DR: KEYUR/christy JOB#: [id number] / [id number]
[2017-03-21] MEDS: METHOCARBAMOL 750 MG TABLET PO SCH ×2 (09:22→13:00)
[2017-03-21] MEDS: DOCUSATE SODIUM 100 MG CAPSULE. PO SCH (09:22)
[2017-03-21] MEDS: hydroCHLOROthiazide 12.5 MG CAPSULE PO SCH (09:23)
[2017-03-21] MEDS: MULTIVITAMIN with MINERAL TABLET. PO SCH (09:23)
[2017-03-21] MEDS: CALCIUM CARB/VIT D3 500/200 TABLET. PO SCH (09:23)
[2017-03-21 11:00] VITALS: BP 133/77
== END 2017-03-21 14:00 | disposition home or self-care (01) ==
LOC: ER 23:24 → 4 NORTH 23:30 → ER 03-18 00:18
PROVIDERS: ADMIT Family Medicine; ATTEND Family Medicine
DX: G89.18 Other acute postprocedural pain (principal); R52 Pain, unspecified; E11.9 Type 2 diabetes mellitus without complications; K70.30 Alcoholic cirrhosis of liver without ascites; K21.9 Gastro-esophageal reflux disease without esophagitis; I10 Essential (primary) hypertension; Z79.4 Long term (current) use of insulin
CPT/HCPCS: 82962; 96372; 99285; G0378; J1815; G0379

== ENCOUNTER → 2017-09-13 | Outpatient (CLI) | payer OTHER | END | disposition home or self-care (01) | LOC: KCIC 13:08 | DX: M43.22 Fusion of spine, cervical region (principal); Z98.1 Arthrodesis status | CPT/HCPCS: 72040 ==

== ENCOUNTER → 2021-02-16 | Outpatient (CLI) | payer OTHER ==
[~2021-02-16] MED LIST changes: +AMLO-187 PO; -AMLO10TA2 PO; +CEPH-264 PO; -CYAN500T PO; +CYAN500T7 PO; +LINA5TAB PO; -LINA5TAB4 PO; -LOSA1TAB16 PO; +LOSA1TAB19 PO; +METH-38 PO; -OMEP40CA5 PO; +OMEP40CA7 PO; +OXYC1TAB20 PO; -OXYC1TAB9 PO
--- NOTE | 2021-02-16 16:31 | CARD ---
MR#: [id number] Date of Study: 02/16/2021 Ordering Physician: ANIKET RONQUILLO, Referring Physician: ANIKET RONQUILLO Tech: Melida Duff MAGGIE APPROVED REPORT EXAM: Two-dimensional and M-mode echocardiogram with Doppler and color Doppler. Other Information Quality : AverageHR: 64bpm Rhythm : NSR INDICATION Dyspnea RISK FACTORS Hypertension Obesity Hyperlipidemia 2D DIMENSIONS RVDd3.0 (2.9-3.5cm)Left Atrium(2D)4.1 (1.6-4.0cm) IVSd1.7 (0.7-1.1cm)Aortic Root(2D)4.1 (2.0-3.7cm) LVDd5.0 (3.9-5.9cm)LVOT Diameter2.9 (1.8-2.4cm) PWd1.3 (0.7-1.1cm)LVDs3.7 (2.5-4.0cm) FS (%) 26.9 %SV62.3 ml LVEF(%)52.3 (>50%) Aortic Valve AoV Peak Finn.126.7cm/sAoV VTI35.3cm AO Peak GR.6.4mmHgLVOT Peak Finn.92.6cm/s AO Mean GR.4mmHgAVA (VMAX)4.90cm2 Mitral Valve MV E Sfuzpdfa59.1cm/sMV DECEL JDIQ916ml MV A Yngbtfdx70.0cm/sE/A Ratio1.0 Tricuspid Valve TR P. Jfunzvag207gw/sTR Peak Gr.23mmHg LEFT VENTRICLE The left ventricle is normal size. There is mild to moderate concentric left ventricular hypertrophy. The left ventricular systolic function is normal and the ejection fraction is within normal range. E stimated ejection fraction 55%. There is normal LV segmental wall motion. The left ventricular diasto lic function and filling is normal for age. RIGHT VENTRICLE The right ventricle is normal size. There is normal right ventricular wall thickness. The right ventr icular systolic function is normal. ATRIA The left atrium size is normal. The right atrium is mildly dilated. The interatrial septum is intact with no evidence for an atrial septal defect or patent foramen ovale as noted on 2-D or Doppler imagi ng. AORTIC VALVE The aortic valve is grossly normal in structure and function. Not well visualized. Doppler and Color Flow revealed no significant aortic regurgitation. There is no significant aortic valvular stenosis. MITRAL VALVE The mitral valve is normal in structure and function. There is no evidence of mitral valve prolapse. There is no mitral valve stenosis. Doppler and Color-flow revealed trace to mild mitral regurgitation . TRICUSPID VALVE The tricuspid valve is normal in structure and function. Doppler and Color Flow revealed trace to mil d tricuspid regurgitation. Estimated PAP 26. There is no tricuspid valve stenosis. PULMONIC VALVE Doppler and Color Flow revealed no pulmonic valvular regurgitation. There is no pulmonic valvular gene nosis. GREAT VESSELS The aortic root is normal in size. The ascending aorta is normal in size. The IVC is normal in size a nd collapses >50% with inspiration. PERICARDIAL EFFUSION There is no evidence of significant pericardial effusion. Critical Notification Critical Value: No <Conclusion> The left ventricular systolic function is normal and the ejection fraction is within normal range. E stimated ejection fraction 55%. There is normal LV segmental wall motion. Signed by : Андрей Laws, Electronically Approved : 02/16/2021 16:31:27
== END ==
LOC: ECHO 09:12
PROVIDERS: ATTEND Family Medicine
DX: I08.1 Rheumatic disorders of both mitral and tricuspid valves (principal); R60.9 Edema, unspecified
CPT/HCPCS: 93306